=== PATIENT | female | born 1945 | race Caucasian/White ===

== ENCOUNTER 2024-04-23 14:40 | Outpatient (CLI) | payer MEDICARE, SELFPAY ==
--- NOTE | 2024-04-23 15:30 | ECG_ITS ---
Test Date: 2024-04-23 15:17:45 Measurements Intervals [place] Rate: 74 P: 82 MS: 151 QRS: -3 QRSD: 74 T: 20 QT: 381 QTc: 424 Interpretive Statements SINUS RHYTHM WITH OCCASIONAL SUPRAVENTRICULAR PREMATURE COMPLEXES LOW QRS VOLTAGE IN PRECORDIAL LEADS [QRS DEFLECTION < 1.0 mV IN CHEST LEADS] No previous ECG available for comparison Electronically Signed On 04-23-2024 15:28:58 CDT by Benji Aguero M.D.
[2024-04-23 15:32] LABS: Basophils Percent Auto 0.3 % (0.2-1.2); Eosinophils Absolute Auto 0.2 K/mm3 (0-0.3); Eosinophils Percent Auto 2.1 % (0-4.4); Hematocrit 41.3 % (37.0-47.0); Hemoglobin 13.5 g/dL (12.0-15.0); Immature Granulocyte Absolute 0.02 K/mm3 (0.00-0.031); Immature Granulocyte Percent A 0.2 % (0-0.5); Lymphocytes Absolute Auto 2.02 K/mm3 (0.9-3.2); Lymphocytes Percent Auto 22.6 % (18.3-44.2); Mean Corpuscular HGB Conc 32.7 g/dl (32-36); Mean Corpuscular Hemoglobin 31.3 pg (26-34); Mean Corpuscular Volume 95.8 fl (80-100); Mean Platelet Volume 8.9 fl (7.4-10.4); Monocytes Absolute Auto 0.6 K/mm3 (0.1-0.6); Monocytes Percent Auto 7.2 % (2.6-8.5); Neutrophils Percent Auto 67.6 % (45.5-73.1); Platelet Count Result 225 k/mm3 (150-375); Red Blood Count 4.31 M/mm3 (4.2-5.4); Red Cell Distribution Width 12.6 % (11.5-14.5); White Blood Count 8.9 K/mm3 (4.5-10.0)
[2024-04-23 15:44] LABS: Partial Thromboplastin Time 31.4 Seconds (22.3-36.8)
[2024-04-23 15:50] LABS: Anion Gap 8 mmol/L (4-12); Blood Urea Nitrogen 12 mg/dL (7-17); Calcium 9.1 mg/dL (8.4-10.2); Carbon Dioxide 27 mmol/L (22-30); Chloride 102 mmol/L (98-107); Estimated Glomerular Filt Rate > 60; Glucose 93 mg/dL (65-110); Potassium 4.8 mmol/L (3.4-5.0); Sodium 137 mmol/L (137-145)
--- OUTSIDE RECORDS SUMMARY | 2024-04-23 16:37 | XMS_ITS | Encounter Summary ---
Author Organization [facility] Address [address] [place] [address] Care Team Providers Care Industrial Welder Name Role Phone Koki Griggs MD Primary Care Provider [phone] Encounter Details Date Type Department Care Team ([facility] st Contact Info) Description 03/09/2022 [employer] Integration Software Message Enc [facility] [facility], [address] [address] [place], [facility] Provider Lipid panel Social History Tobacco Use Types Packs/Day Years Used Date Smoking Tobacco: Former Cigarettes Q uit: 1989 Smokeless Tobacco: Never Comments:quit Alcohol Use Standard Drinks/Week Comments Yes 0 (1 standard drink = 0.6 oz pur e alcohol) AUDIT-C Answer Date Recorded Q1: How often do you have a drink containing alc ohol? 2-4 times a month 02/17/2020 Q2: How many drinks containi ng alcohol do you have on a typical day when you are drinking? 1 or 2 02/17/2020 Frequency of Binge Drinking Not on file 02/05 Overall Financial Resource Strain (CARDIA) Answe r Date Recorded Difficulty of Paying Living Expenses Not hard at all 03/18/2019 Hunger Vital Sign Answer Date Recorded Worried About Running Out of Food in the Last Ye ar Never true 03/18/2019 Ran Out of Food in the Last Year Never true 03/18/2019 PRAPARE - Transportation Answer Date Re corded Lack of Transportation (Medical) Yes 03/18/2019 Lack of Transportation (Non-Medical) No 03/18/2019 Comments No Sex and Gender Information Value Date Recorded Sex Assigned at Female 04/18/2024 12:29 PM CDT Legal Sex Female 1:14 AM CDT Gender Identity Not on file Sexual Orientation Not on file COVID-19 Exposure Response Date Recorded In the last 10 days, have yo u been in contact with someone who was confirmed or suspected to have Coronavirus/COVID-19? No / Unsure 02/21/2022 1:54 PM OFFICE MACHINE SERVICER documented as of this encounter Functional Status * RETIRED Are you deaf or do you have serious difficulty hearing Answer Date of Assessment Author Status No 12/23/2021 4:58 PM OFFICE MACHINE SERVICER Activ e * RETIRED Are you blind or do you have serious difficulty seeing, even when wearing glasses? Answer Date of Assessment Author Status No 12/23/2021 4:58 PM OFFICE MACHINE SERVICER Activ e * Do you have serious difficulty walking or climbing stairs? Answer Date of Assessment Author Status Yes 12/23/2021 4:58 PM OFFICE MACHINE SERVICER Maryan Pearl RN Active * Do you have difficulty dressing or bathing? Answer Date of Assessment Author Status Yes 12/23/2021 4:58 PM OFFICE MACHINE SERVICER Maryan Pearl RN Active * Because of a physical, mental, or emotional condition, do you have difficulty doing errands alone such as visiting a doctor's office or shopping? Answer Date of Assessment Author Status Yes 12/23/2021 4:58 PM OFFICE MACHINE SERVICER Maryan Pearl RN Active documented as of this encounter Mental Status * Because of a physical, mental, or emotional condition, do you have serious difficulty concentrating, remembering, or making decisions? Answer Entry Date Author Status No 12/23/2021 4:58 PM OFFICE MACHINE SERVICER Maryan Pearl RN Active documented in this encounter Plan of Treatment Not on file documented as of this encounter Goals Goal Patient Goal Type Associated Problems Recent Progress Patient-Stated? Author Family - family caregiver with be involved in care transitions and discharge planning Lifestyle No Karol Lewis RN documented as of this encounter Visit Diagnoses Not on filedocumented in this encounter Care Teams Industrial Welder Relationship Specialty Start Date End Date Koki Griggs MD [address] [address] PCP - General 09/28/15 documented as of this encounter
--- OUTSIDE RECORDS SUMMARY | 2024-04-23 16:37 | XMS_ITS | Encounter Summary ---
Author Organization [facility] Address [address] [place] [address] Care Team Providers Care Blackjack Pit Boss Name Role Phone Koki Griggs MD Primary Care Provider [phone] Encounter Details Date Type Department Care Team (Late st Contact Info) Description 03/08/2022 [facility] [address] [address] Jarred Ayala MA Social History Tobacco Use Types Packs/Day Years [...] Coronavirus/COVID-19? No / Unsure 02/21/2022 1:54 PM CONTROL SYSTEMS DRAFTING OFFICER documented as of this encounter Functional Status * RETIRED Are you deaf or do you have serious difficulty hearing Answer Date of Assessment Author Status No 12/23/2021 4:58 PM CONTROL SYSTEMS DRAFTING OFFICER Activ e * RETIRED Are you blind or do you have serious difficulty seeing, even when wearing glasses? Answer Date of Assessment Author Status No 12/23/2021 4:58 PM CONTROL SYSTEMS DRAFTING OFFICER Activ e * Do you have serious difficulty walking or climbing stairs? Answer Date of Assessment Author Status Yes 12/23/2021 4:58 PM CONTROL SYSTEMS DRAFTING OFFICER Maryan Pearl RN Active * Do you have difficulty dressing or bathing? Answer Date of Assessment Author Status Yes 12/23/2021 4:58 PM CONTROL SYSTEMS DRAFTING OFFICER Maryan Pearl RN Active * Because of a physical, mental, or emotional condition, do you have difficulty doing errands alone such as visiting a doctor's office or shopping? Answer Date of Assessment Author Status Yes 12/23/2021 4:58 PM CONTROL SYSTEMS DRAFTING OFFICER Maryan Pearl RN Active documented as of this encounter Mental Status * Because of a physical, mental, or emotional condition, do you have serious difficulty concentrating, remembering, or making decisions? Answer Entry Date Author Status No 12/23/2021 4:58 PM CONTROL SYSTEMS DRAFTING OFFICER Maryan Pearl RN Active documented in this encounter Plan of Treatment Not on file documented as of this encounter Goals Goal Patient Goal Type Associated Problems Recent Progress Patient-Stated? Author Family - family caregiver with be involved in care transitions and discharge planning Lifestyle No Karol Lewis RN documented as of this encounter Procedures Procedure Name Priority Date/Time Associated Diagnosis Comments THYROID STIM HORMONE TSH Routine 06/06/2023 COMPREHENSIVE METABOLIC PANEL Routine 05/30/2023 LIPID PANEL Routine 05/30/2023 LIPID PANEL Routine 03/07/2022 documented in this encounter Results * THYROID STIM HORMONE TSH (06/06/2023) TSH 1.869 us Default History Genericprovider LABORATORY Final Result * COMPREHENSIVE METABOLIC PANEL (05/30/2023) SODIUM S/P/B 141 GLUCOSE 90 mg/dL AST 16 BUN 15 CREATININE S/P/B 0.7 0.5 - 1.0 CALCIUM S/P/B 8.4 POTASSIUM S/P/B 4.2 CHLORIDE S/P/B 106 ALT 14 GFR ESTIMATE 81 us Default History Genericprovider LABORATORY Final Result * LIPID PANEL (05/30/2023) CHOLESTEROL 142 TRIGLYCERIDES 94 HDL 48 LDL (CALCULATED) 75 us Default History Genericprovider LABORATORY Final Result * LIPID PANEL (03/07/2022) CHOLESTEROL 138 HDL 43.9 TRIGLYCERIDES 101 LDL (CALCULATED) 74.3 03/07/2022 us Default History Genericprovider LABORATORY Final Result documented in this encounter Visit Diagnoses Not on filedocumented in this encounter Care Teams Blackjack Pit Boss Relationship Specialty Start Date End Date Koki Griggs MD [address] [facility] [address] [place] [address] PCP - General 09/28/15 documented as of this encounter
--- OUTSIDE RECORDS SUMMARY | 2024-04-23 16:37 | XMS_ITS | Referral Summary ---
Author Organization [facility] at the Medical Office Building Address [address] [place] [address] Care Team Providers Care Vice President Digital Strategist Name Role Phone Koki Griggs MD Primary Care Provider [phone] Philip Ricci MD Unavailable Encounters Date Type Department Care Team Description 03/04/2024 Orders Only [facility] Vascular and Vein Surgery [address] [place] [address] [address] [place] [address] Elijah Marie MD Right carotid artery occlusion (Primary Dx); Carotid stenosis, left 03/03/2024 12:38 PM COAL YARD SUPERVISOR - 03/03/2024 11:59 PM COAL YARD SUPERVISOR Hospital Encounter [facility] [address] [place] [address] [address] [place] [address] Carotid stenosis, left Discharge Disposition: Discharge to home or self care 03/03/2024 1:45 PM COAL YARD SUPERVISOR Office Visit [facility] Vascular and Vein Surgery [address] [place] [address] [address] [place] [id number] Elijah Marie MD Carotid stenosis, left (Primary Dx); Primary hypertension; Mixed hyperlipidemia from Last 3 Months Allergies Active Allergy Reactions Criticality Noted Date Comments Aspartame Hives,Rash High 07/16/2015 Atorvastatin Stomach upset Low 12/22/2019 Oxybutynin Other (See comments) Low 12/22/2019 Dry mouth and dry eyes Penicillins Hives,Unknown High 10/29/2012 UNKNOWN Rosuvastatin Stomach upset Low 12/22/2019 Sulfa (Sulfonamide Antibiotics) Hives High 09/28/2015 Medications cholecalciferol (VITAMIN D-3) 3,000 unit tablet Take 0.6667 tablets (2,000 Units total) by mouth every morning Active alendronate (FOSAMAX) 70 mg tabletIndications:P ost-Menopausal Osteoporosis Take 1 tablet (70 mg total) by mouth HOLD X 4-6 WEEKS AFTER SURGERY. 05/17/19 22 Active aspirin 81 mg enteric coated tablet Take 1 tablet (81 mg total) by mouth daily 30 tablet 11 05/10/19 23 Active clopidogreL (PLAVIX) 75 mg tabletIndications:C erebral Thromboembolism Prevention Take 1 tablet (75 mg total) by mouth every morning 30 tablet 05/20/19 23 Active ezetimibe (ZETIA) 10 mg tablet Take 1 tablet (10 mg total) by mouth every morning 30 tablet 05/20/19 23 Active gabapentin (NEURONTIN) 100 mg capsule Take 1 capsule (100 mg total) by mouth 3 (three) times a day 90 capsule 05/20/19 Active Additional Information Patient not taking.Reported on 02/22/2023 levETIRAcetam (KEPPRA) 500 mg tabletIndications:T onic-clonic seizure disorder (HCC) Take 1 tablet (500 mg total) by mouth 2 (two) times a day Seizures 60 tablet 05/20/19 Active levothyroxine (SYNTHROID) 175 mcg tabletIndications:A cquired hypothyroidism Take 1 tablet (175 mcg total) by mouth every morning 30 tablet 05/20/[address] (PROTONIX) 40 mg EC tabletIndications:G I Bleed,Treatment of Non-Bleeding Gastric Disorder Take 1 tablet (40 mg total) by mouth daily 30 tablet 05/20/19 23 Active Additional Information Patient not taking.Reported on 02/22/2023 senna-docusate (PERICOLACE) 8.6-50 mgIndications:const ipation Take 1 tablet by mouth 2 (two) times a day as needed for constipation 05/20/19 Active Additional Information Patient not taking.Reported on 07/13/2022 sertraline (ZOLOFT) 50 mg tabletIndications:A nxiety and depression Take 1 tablet (50 mg total) by mouth daily 30 tablet 05/20/19 23 Active traMADoL (ULTRAM) 50 mg tabletIndications:C hronic generalized pain disorder Take 1 tablet (50 mg total) by mouth 3 (three) times a day as needed for pain 30 tablet 05/20/19 23 Active traZODone (DESYREL) 50 mg tabletIndications:A nxiety and depression Take 1 tablet (50 mg total) by mouth nightly 30 tablet 05/20/19 23 Active venlafaxine XR (EFFEXOR-XR) 75 mg 24 hr capsuleIndications: hot flashes Take 1 capsule (75 mg total) by mouth every morning 30 capsule 05/20/19 23 Active acetaminophen (TYLENOL) 500 mg tablet Take 1 tablet (500 mg total) by mouth every 6 (six) hours as needed Active atorvastatin (LIPITOR) 40 mg tablet 04/26/19 23 Active melatonin tablet Take 2 tablets (6 mg total) by mouth nightly as needed Active tiZANidine (ZANAFLEX) 2 mg tablet 07/11/19 Active nystatin powder 01/03/20 Active Active Problems Problem Noted Date Diagnosed Date Chronic generalized pain disorder 05/10/2022 Assessment & Plan (05/20/2022 3:52 PM CDT): Pain overall well controlled, continue gabapentin, tizanidine, tramadol p.r.n. Assessment & Plan (05/17/2022 9:20 PM CDT): Pain remains well controlled on current regimen, she feels she is making some progress in therapy. Continue multidrug regimen including gabapentin, Tylenol, tizanidine, tramadol Assessment & Plan (05/15/2022 8:10 PM CDT): Pain overall well controlled, refill for gabapentin sent to pharmacy. Continue scheduled gabapentin 100 mg t.i.d., p.r.n. tramadol, Tylenol, tizanidine p.r.n. Assessment & Plan (05/10/2022 5:46 AM CDT): Continue gabapentin 100 mg t.i.d., tizanidine p.r.n., tramadol p.r.n.. Anxiety and depression 05/10/2022 Assessment & Plan (05/20/2022 3:52 PM CDT): Mood stable, continue Zoloft, venlafaxine Assessment & Plan (05/17/2022 9:20 PM CDT): Mood is well controlled with regimen including venlafaxine, Zoloft. Patient without behaviors and is cooperative with care. Assessment & Plan (05/10/2022 5:46 AM CDT): Mood currently stable. Continue Zoloft 50 mg, venlafaxine 75 mg daily. Chronic right shoulder pain 05/10/2022 Assessment & Plan (05/15/2022 8:07 PM CDT): Patient dislikes the Lidoderm patches, will change to lidocaine cream. Continue Tylenol, tramadol p.r.n. Assessment & Plan (05/10/2022 6:10 PM CDT): Lidocaine patch, tylenol q6 Slow transit constipation 05/09/2022 Assessment & Plan (05/20/2022 3:52 PM CDT): Stable with p.r.n. bowel regimen Assessment & Plan (05/15/2022 8:07 PM CDT): Now with looser stool, cathartics have been changed to p.r.n. Assessment & Plan (05/10/2022 5:38 AM CDT): Had BM, cont Liliana Colace b.i.d., MiraLax, suppository p.r.n.. Encourage oral hydration and nutrition Assessment & Plan (05/09/2022 1:18 PM CDT): Will add BID pericolace and daily miralax, prn suppository Gastrointestinal hemorrhage, unspecified gastrointestinal hemorrhage type 04/25/2022 Assessment & Plan (05/20/2022 3:49 PM CDT): Status post EGD, colonoscopy by Dr. Aguero, no evidence of active bleeding. Resumed Plavix and aspirin, continue PPI daily. Will need outpatient GI follow-up Assessment & Plan (05/17/2022 9:22 PM CDT): H&H has been stable, most recent hemoglobin 9.9. Continue to monitor. Follow-up hemoglobin on 05/23/2022 Assessment & Plan (05/15/2022 8:10 PM CDT): No recurrence of noticeable/active bleeding. H&H previously stable, follow-up H&H in a.m.. Assessment & Plan (05/10/2022 5:38 AM CDT): Pt presented in ER due to BRBPR. Status post EGD, colonoscopy per Dr. Aguero. Continue PPI daily - no evidence of active bleeding during evaluation. Resumed Plavix, aspirin. Last Hg 10.1 on 05/07/22, stable. We will need to monitor H&H. Assessment & Plan (05/09/2022 8:21 PM CDT): Status post EGD, colonoscopy. Continue PPI daily - no evidence of active bleeding during evaluation. Resumed Plavix, aspirin. We will need to monitor H&H. Syncope 12/20/2021 07/13/2022 Hypertension 05/11/2021 Assessment & Plan (05/10/2022 5:44 AM CDT): Blood pressure controlled. Continue not on any med. Continue to monitor Diastolic dysfunction 05/11/2021 Primary osteoarthritis of left knee 09/04/2019 Assessment & Plan (05/09/2022 8:20 PM CDT): Chronic left knee pain, previously followed with Dr. Florez. Pain typically with Tylenol only, now with increased pain after laying in hospital bed. Will add tramadol p.r.n. Assessment & Plan (12/01/2019 5:47 PM CDT): We discussed the risks, benefits and alternatives of treatment options for osteoarthritis of the knee. From least invasive to most invasive: The only thing to slow the progression of osteoarthritis is weight loss. For every pound lost 4 to 6 pounds of stress is relieved from the knee. Formal physical therapy to help with flexion, extension, mobility and strength. Unloading braces to unload the affected side. The possibility of TENs unit to control pain and swelling. Nonsteroidal anti-inflammatories with the potential of cardiac and GI upset. Steroid and Visco supplement injection. And eventual total knee arthroplasty. Patient understands that I will not be here after January 06, 2020. Alternate physicians were offered. Dr. Hernández and Dr. Webb. Visco supplement injected today. Follow-up in 3 months. Assessment & Plan (09/04/2019 8:25 PM CDT): We discussed the risks, benefits and alternatives of treatment options for osteoarthritis of the knee. From least invasive to most invasive: The only thing to slow the progression of osteoarthritis is weight loss. For every pound lost 4 to 6 pounds of stress is relieved from the knee. Formal physical therapy to help with flexion, extension, mobility and strength. Unloading braces to unload the affected side. The possibility of TENs unit to control pain and swelling. Nonsteroidal anti-inflammatories with the potential of cardiac and GI upset. Steroid and Visco supplement injection. And eventual total knee arthroplasty. After going over the risks, benefits and alternatives all questions are answered. Zilretta is injected. Follow up in 4 weeks for possible Visco supplement injection Class 1 obesity in adult 09/04/2019 Assessment & Plan (09/04/2019 8:25 PM CDT): We discussed the adverse effects of extra weight on osteoarthritis. The only thing proven to slow the progression of osteoarthritis as weight loss. Every 1 lb lost, relieves 4-6 lb of stress across the knee. Continue weight loss through diet and exercise. Consider low carbohydrate diet. Closed fracture of multiple pubic rami, right, with routine healing, subsequent encounter 04/08/2019 Closed nondisplaced fracture of medial wall of right acetabulum 03/19/2019 Hip fracture 03/18/2019 Right carotid artery occlusion 08/28/2016 CVA (cerebral vascular accident) 09/28/2015 Overview (12/23/2018): Back in 1997. Left hemiplegia but still able to walk without assistance. Assessment & Plan (09/04/2019 8:26 PM CDT): On blood thinners therefore cannot use nonsteroidal anti-inflammatories. HLD (hyperlipidemia) 09/28/2015 Assessment & Plan (03/06/2024 7:59 AM COAL YARD SUPERVISOR): Stable continue Lipitor. Hypothyroidism 09/28/2015 Assessment & Plan (05/20/2022 3:48 PM CDT): TSH well controlled, continue 175 mcg daily of Synthroid Assessment & Plan (05/10/2022 5:42 AM CDT): TSH 34 in 12/27>>> 10.18 on 04/28. Will recheck tsh, cont 175 mcg dose Tonic-clonic seizure disorder (CMS/HCC) 09/28/19 16 Assessment & Plan (05/20/2022 3:52 PM CDT): No recent seizure activity, Keppra level stable, continue current Keppra dosing Assessment & Plan (05/10/2022 5:45 AM CDT): Currently stable, no seizure activity. Continue Keppra, follow-up Keppra level on 05/12 Assessment & Plan (05/09/2022 8:23 PM CDT): No active recent seizures. Continue Keppra, follow-up level in a.m. Carotid stenosis, left 06/28/2015 Assessment & Plan (03/06/2024 7:58 AM COAL YARD SUPERVISOR): Known right CCA and ICA occlusion. Left ICA with severe greater than 70% stenosis, overall still less than 80%. Continue risk factor modification with ASA Plavix and statin therapy. Follow up in 6 months repeat carotid duplex. Assessment & Plan (05/10/2022 5:43 AM CDT): History of chronic right ICA occlusion, currently moderate left carotid stenosis. Continue Plavix, aspirin. Follows up outpatient with vascular, Dr. Winter. Will need routine surveillance carotid duplex Assessment & Plan (11/25/2021 3:26 PM CDT): Patient has a history of chronic right ICA occlusion. She currently has a moderate left carotid stenosis with a velocity of 127. She remains asymptomatic denying any symptoms of slurred speech unilateral weakness or amaurosis fugax. Plan: Return in 1 year for routine surveillance with a carotid duplex. Contracture of hand joint 09/06/2011 Immunizations Immunization Administration Dates Next Due Influenza, Quadrivalent, Hig h Dose, Preservative Free, Intrr 11/23/2020,10/16/2019 Influenza, Trivalent, High D ose, Split, Preservative Free, Intramuscular 01/14/2019,01/13/2019,11/08/2017,11/11,11/10/2015,11/29/2014 Influenza, Trivalent, IM (MDV) 10/23/2013,2012,11/29/2011 Influenza, Unspecified 10/23/2013,12/11/2012, Tdap 07/21/2020 ZOSTER LIVE 07/04/2013 Social History Tobacco Use Types Packs/Day Years Used Date Smoking Tobacco: Former Cigarettes 1 35 1 964 - 1985 Smokeless Tobacco: Never Tobacco Cessation:Counseling Given: Not Answered Alcohol Use Standard Drinks/Week Comments Yes 0 (1 standard drink = 0.6 oz pur e alcohol) socially AUDIT-C Answer Date Recorded Q1: How often do you have a drink containing alc ohol? 2-4 times a month 05/16/2021 Average Number of Drinks Not on file 022 Frequency of Binge Drinking Not on file 05/06 Personal Safety Answer Date Recorded Have you ever been in or are you currently in a harmful physical or emotional relationship or is someone making you feel afraid or unsafe? Denies 04/27/2022 Comments No Sex and Gender Information Value Date Recorded Sex Assigned at Not on file Legal Sex Female 9:42 AM COAL YARD SUPERVISOR Gender Identity Not on file Sexual Orientation Not on file Occupation Industry Job Start Date Job End Date retired Not on file Not on file Not on file Last Filed Vital Signs Vital Sign Reading Time Taken Comments Blood Pressure 141/84 03/03/2024 1:40 PM COAL YARD SUPERVISOR Pulse 65 03/03/2024 1:40 PM COAL YARD SUPERVISOR Temperature 36.3 C (97.4 F) 05/19/2022 11:29 AM CDT Respiratory Rate 18 05/19/2022 11:29 AM CDT Oxygen Saturation 93% 05/19/2022 11:29 AM CDT Inhaled Oxygen Concentration - - Weight 83.9 kg (185 lb) 03/03/2024 1:40 PM COAL YARD SUPERVISOR Height 167.6 cm (5' 6 ) 03/03/2024 1:40 PM COAL YARD SUPERVISOR Body Mass Index 29.86 03/03/2024 1:40 PM COAL YARD SUPERVISOR Plan of Treatment Not on file Medical Devices Implanted Type Area Cook Morning Device Identifier Shelf Expiration Date Model / Serial / Lot [employer] Simplex P Full Dose Radiopaque Preblend Cement Bone Tobramycin 6197-9-010 - Sna - [id number] Implanted:Qty: 1 on 05/16/2021 by Mohan Novak MD at [facility] Bone Cement Left: Knee [employer] 08/04/2022 6197-9-010 / NA / [id number] [employer] Simplex P Full Dose Radiopaque Preblend Cement Bone Tobramycin 6197-9-010 - Sna - [id number] Implanted:Qty: 1 on 05/16/2021 by Mohan Novak MD at [facility] Bone Cement Left: Knee [employer] 08/04/2022 6197-9-010 / NA / [id number] [employer] [id number] Persona Natural Tibia Stem Knee Left 5d E Baseplate Tibial - Sna - [id number] Implanted:Qty: 1 on 05/16/2021 by Mohan Novak MD at [facility] Other - see comments Left: Knee [employer] [id number] 11/15/2030 [id number] / NA / [id number] [employer] Persona Cruciate Retain Cemented Knee Left 9 Narrow Component [id number] - Sna - [id number] Implanted:Qty: 1 on 05/16/2021 by Mohan Novak MD at [facility] Other - see comments Left: Knee [employer] [id number] 12/27/2030 [id number] / NA / [id number] [employer] Persona 10mm Ultracongruent Knee Left 4-11 E-F Insert Articular [id number] - Sna - [id number] Implanted:Qty: 1 on 05/16/2021 by Mohan Novak MD at [facility] Other - see comments Left: Knee [employer] [id number] 05/06/2027 [id number] / NA / [id number] Knee Right: Knee Description:Screws R femur, pins in L shoulder Procedures Procedure Name Priority Date/Time Associated Diagnosis Comments US CAROTIDS DUPLEX BILATERAL Schedule Routine, Read Routine (OP Routine) 03/03/2024 1:42 PM COAL YARD SUPERVISOR Carotid stenosis, left DEXA AXIAL SKELETON BONE DENSITY 1 OR MORE SITES Routine 07/30/2015 2:12 PM CDT from Last 3 Months or Most Recently Relevant to Health Maintenance Results * US Carotids Duplex Bilateral (03/03/2024 1:42 PM COAL YARD SUPERVISOR) Anatomical Region Laterality Modality Vascular Bilateral Ultrasound 03/03/2024 Narrative 03/04/2024 11:50 AM COAL YARD SUPERVISOR [employer] Job ID: [id number] [employer] Document ID: [id number] Dictated date/time: [id number] BILATERAL CAROTID DUPLEX REASON FOR EXAM Carotid stenosis. FINDINGS ON THE RIGHT The right CCA and ICA are known to be occluded. ECA is 48. The right vertebral has antegrade flow FINDINGS ON THE LEFT The left CCA peak systolic velocity is 97 cm/sec, left ICA is 251 over an end-diastolic velocity of 66. Mid portion 135/52, distal 87. ECA is 128. The left vertebral has antegrade flow. INTERPRETATION Known chronic occlusion of the right common carotid and internal carotid artery. Left internal carotid artery with severe greater than 70% stenosis. Job ID/Internal Job ID: [id number] us Christian Winter MD IMG US PROCEDURES Final Res ult * Dexa Axial Skeleton Bone Density 1 or 2 Site (07/30/2015 2:12 PM CDT) Anatomical Region Laterality Modality Body N/A Radiographic Christi ging 07/30/2015 2:12 PM CDT Impressions 07/30/2015 3:07 PM CDT Low bone mass. Fracture risk, as above. Additional Clinical Information: Bone mineral density: Normal (T-score above or = -1.0) Low bone mass (T-score between -1.0 and -2.5) replaces the previously used term osteopenia Osteoporosis (T-score = or below -2.5) Medical evaluation for secondary causes of low bone mineral density may be appropriate. FRAX is a World Health Organization validated fracture risk assessment tool that calculates a person's 10 year probability of a major osteoporosis related fracture and hip fracture. According to the National Osteoporosis Foundation guidelines, postmenopausal women and men age 50 or older with low bone mass and a 10 year probability of a major osteoporosis related fracture = or greater than 20% or a 10 year probability of a hip fracture = or greater than 3% should be considered for treatment. For further information, including treatment recommendations, please refer to the 2013 ISCD Official Positions (http://www.iscd.org) and the NOF's Clinician's Guide to Prevention and Treatment of Osteoporosis (http://www.nof.org/professionals/clinical-guidelines) THIS IS AN ELECTRONICALLY VERIFIED REPORT 07/30/2015 3:04 PM: Mansoor Sherman M.D. Mansoor Sherman M.D. [place]:tunde 03:04 PM 03:04 PM [facility] [EOD] Narrative 07/30/2015 3:07 PM CDT EXAMINATION: DXA Bone Density HISTORY: 70 year old postmenopausal female. Current Height: 66.5 inches Maximum Height: 68 inches Weight: 224 pounds RISK FACTORS: She has taken multivitamin and vitamin D. She does not regularly perform weightbearing exercise. She regularly consumes dairy products and caffeinated beverages. COMPARISON(S): None SUPERVISOR MACHINING/MODEL: [employer] (S/N [id number]) FINDINGS: AP lumbar spine L1-L4 Total BMD is 1.149 g/yd9R-qmsgh is 0.9 Measured BMD is thought to be spuriously elevated due to multilevel arthropathy. Left Hip Total BMD is 0.828 g/rb9L-vorrz is -0.9 Neck BMD is 0.627 g/as6A-fnszv is -2 Fracture risk assessment (FRAX): 10 year risk for a major osteoporotic fracture is 11 % 10 year risk for a hip fracture is 2.2 % The FRAX tool has not been validated in patients currently or previously treated with pharmacotherapy for osteoporosis. In such patients, clinical judgement must be exercised in interpreting FRAX scores as the fracture risk may be overestimated. Procedure Note Provider, MD Nate - 06/22/2020 EXAMINATION: DXA Bone Density HISTORY: 70 year old postmenopausal female. Current Height: 66.5 inches Maximum Height: 68 inches Weight: 224 pounds RISK FACTORS: She has taken multivitamin and vitamin D. She does not regularly perform weightbearing exercise. She regularly consumes dairy products and caffeinated beverages. COMPARISON(S): None SUPERVISOR MACHINING/MODEL: [employer] (S/N [id number]) FINDINGS: AP lumbar spine L1-L4 Total BMD is 1.149 g/fu9X-asvsv is 0.9 Measured BMD is thought to be spuriously elevated due to multilevel arthropathy. Left Hip Total BMD is 0.828 g/po4G-aygtd is -0.9 Neck BMD is 0.627 g/vy7G-lpkzg is -2 Fracture risk assessment (FRAX): 10 year risk for a major osteoporotic fracture is 11 % 10 year risk for a hip fracture is 2.2 % The FRAX tool has not been validated in patients currently or previously treated with pharmacotherapy for osteoporosis. In such patients, clinical judgement must be exercised in interpreting FRAX scores as the fracturerisk may be overestimated. IMPRESSION: Low bone mass. Fracture risk, as above. Additional Clinical Information: Bone mineral density: Normal (T-score above or = -1.0) Low bone mass (T-score between -1.0 and -2.5) replaces the previously used term osteopenia Osteoporosis (T-score = or below -2.5) Medical evaluation for secondary causes of low bone mineral density may be appropriate. FRAX is a World Health Organization validated fracture risk assessmenttool that calculates a person's 10 year probability of a major osteoporosisrelated fracture and hip fracture. According to the National OsteoporosisFoundation guidelines, postmenopausal women and men age 50 or older with low bonemass and a 10 year probability of a major osteoporosis related fracture = or greater than 20% or a 10 year probability of a hip fracture = or greaterthan 3% should be considered for treatment. For further information, including treatment recommendations, please referto the 2013 ISCD Official Positions (http://www.iscd.org) and the NOF's Clinician's Guide to Prevention and Treatment of Osteoporosis (http://www.nof.org/professionals/clinical-guidelines) THIS IS AN ELECTRONICALLY VERIFIED REPORT 07/30/2015 3:04 PM: Mansoor Sherman M.D. Mansoor Sherman M.D. NH:ms 03:04 PM 03:04 PM [facility] [EOD] Koki Griggs MD IMG DXA PROCEDURES Final Resul t from Last 3 Months or Most Recently Relevant to Health Maintenance Insurance [employer] MEDICARE MEDICARE [employer] [facility] MEDICARE Address: [address] [address] [place] [address] FOR[facility]LY [facility] MEDIC[facility] Advance Directives For more information, please contact: [phone] Documents on File Type Date Recorded Patient Aluminum Hydroxide Process Operator Expl anation ADVANCE DIRECTIVE 05/09/2022 2:00 PM POLST - Phys Order for PT Preferences ADVANCE DIRECTIVE 10/30/2012 12:00 AM CLINT R OF EXTENSION PROFESSOR FINANCIAL/MEDICAL ADVANCE DIRECTIVE 10/22/2012 12:00 AM SHAMAR NAVARRO * Full Code (Latest Code Status on File) Date Activated Date Inactivated Comments 04/27/2022 12:05 PM 05/08/2022 8:38 PM * Full Code Date Activated Date Inactivated Comments 04/25/2022 6:11 PM 04/27/2022 12:05 PM * Full Code Date Activated Date Inactivated Comments 05/16/2021 2:43 PM 05/21/2021 4:35 PM Care Teams Vice President Digital Strategist Relationship Specialty Start Date End Date Koki Griggs MD [address] [address] PCP - General Family Medicine 10/28/18 Philip Ricci MD [address] [address] Consulting Physician Gastroenterology 04/28/22
--- OUTSIDE RECORDS SUMMARY | 2024-04-23 16:37 | XMS_ITS | Clinical Summary ---
Author Organization [facility] at the Medical Office Building Address [address] [place] [address] Care Team Providers Care Print Decorator Name Role Phone Koki Griggs MD Primary Care Provider [phone] Philip Ricci MD Unavailable Allergies Active Allergy Reactions Criticality Noted Date [...] by mouth every morning 30 tablet 05/20/19 Active gabapentin (NEURONTIN) 100 mg capsule Take [...] by mouth every morning 30 tablet 05/20/[address] (PROTONIX) 40 mg EC tabletIndications:G I Bleed,Treatment of Non-Bleeding Gastric Disorder Take 1 tablet (40 mg total) by mouth daily 30 tablet 05/20/19 Active Additional Information Patient not taking.Reported on 02/22/2023 senna-docusate (PERICOLACE) 8.6-50 mgIndications:const ipation Take 1 tablet by mouth 2 (two) times a day as needed for constipation 05/20/19 Active Additional Information Patient not taking.Reported on 07/13/2022 sertraline (ZOLOFT) 50 mg tabletIndications:A nxiety and depression Take 1 tablet (50 mg total) by mouth daily 30 tablet 05/20/19 Active traMADoL (ULTRAM) 50 mg tabletIndications:C hronic generalized pain disorder Take 1 tablet (50 mg total) by mouth 3 (three) times a day as needed for pain 30 tablet 05/20/19 Active traZODone (DESYREL) 50 mg tabletIndications:A nxiety and depression Take 1 tablet (50 mg total) by mouth nightly 30 tablet 05/20/19 Active venlafaxine XR (EFFEXOR-XR) 75 mg 24 hr capsuleIndications: hot flashes Take 1 capsule (75 mg total) by mouth every morning 30 capsule 05/20/19 Active acetaminophen (TYLENOL) 500 mg tablet Take 1 tablet (500 mg total) by mouth every 6 (six) hours as needed Active atorvastatin (LIPITOR) 40 mg tablet 04/26/19 Active melatonin tablet Take 2 tablets (6 [...] 09/28/2015 Assessment & Plan (03/06/2024 7:59 AM ENGRAVER SEALS): Stable continue Lipitor. Hypothyroidism 09/28/2015 Assessment & [...] 06/28/2015 Assessment & Plan (03/06/2024 7:58 AM ENGRAVER SEALS): Known right CCA and ICA occlusion. Left [...] carotid duplex. Contracture of hand joint 09/06/2011 Encounters Date Type Department Care Team Description 03/04/2024 Orders Only [facility] Vascular and Vein Surgery [facility] [address] [place] [phone] Elijah Marie MD Right carotid artery occlusion (Primary Dx); Carotid stenosis, left 03/03/2024 1:45 PM ENGRAVER SEALS Office Visit [facility] Vascular and Vein Surgery [address] [facility] [address] [place] [phone] Elijah Marie MD Carotid stenosis, left (Primary Dx); Primary hypertension; Mixed hyperlipidemia 03/03/2024 12:38 PM ENGRAVER SEALS - 03/03/2024 11:59 PM ENGRAVER SEALS Hospital Encounter [facility] 2 Vascular [facility] [address] [place] [address] Carotid stenosis, left Discharge Disposition: Discharge to home or self care from Last 3 Months Immunizations Immunization Administration Dates Next Due Influenza, Quadrivalent, Hig h Dose, Preservative Free, Intrr 11/23/2020,10/16/2019 Influenza, Trivalent, High D ose, Split, Preservative Free, Intramuscular 01/14/2019,01/13/2019,11/08/2017,11/11,11/10/2015,11/29/2014 Influenza, Trivalent, IM (MDV) 10/23/2013,2012,11/29/2011 Influenza, Unspecified 10/23/2013,12/11/2012, Tdap 07/21/2020 ZOSTER LIVE 07/04/2013 Surgical History Surgery Date Site/Laterality Comments FINGER SURGERY Left FUSION SHOULDER SURGERY Left PINS PLACED CAROTID ENARTERECTOMYY 02/05/1997 - 02/04/1998 Right SHOULDER SURGERY Left TOTAL KNEE ARTHROPLASTY Right FRACTURE SURGERY 02/05/2018 - 02/04/2019 fall femur fx HERNIA REPAIR abdominal hernia JOINT REPLACEMENT Right knee replacement Medical History Medical History Date Comments Hypercholesterolemia Hx of seizure disorder Stroke (HCC) OA (osteoarthritis) Seizures (HCC) Thyroid disease Family History Medical History Relation Name Comments Arthritis Father Cancer Father Gout Father Heart disease Father Stroke Father Blood Clot Mother Anesthesia problems Neg Hx Relation Name Status Comments Father Mother Social History Tobacco Use Types Packs/Day Years [...] on file Legal Sex Female 9:42 AM ENGRAVER SEALS Gender Identity Not on file Sexual Orientation Not on file Occupation Industry Job Start Date Job End Date retired Not on file Not on file Not on file Obstetrics History Last Filed Vital Signs Vital Sign Reading Time Taken Comments Blood Pressure 141/84 03/03/2024 1:40 PM ENGRAVER SEALS Pulse 65 03/03/2024 1:40 PM ENGRAVER SEALS Temperature 36.3 C (97.4 F) 05/19/2022 11:29 AM CDT Respiratory Rate 18 05/19/2022 11:29 AM CDT Oxygen Saturation 93% 05/19/2022 11:29 AM CDT Inhaled Oxygen Concentration - - Weight 83.9 kg (185 lb) 03/03/2024 1:40 PM ENGRAVER SEALS Height 167.6 cm (5' 6 ) 03/03/2024 1:40 PM ENGRAVER SEALS Body Mass Index 29.86 03/03/2024 1:40 PM ENGRAVER SEALS Plan of Treatment Health Maintenance Due Date Last Done Comments Depression Screening 1943 Hepatitis B Screening 1961 Pneumococcal vaccine 65+ (1 of 1 - PCV) 1993 Well Visit 65+ 02/12/2008 Zoster Vaccine (2 of 3) 08/29/2013 07/04/2013 Osteoporosis Screening-Bone Density Scan 02/03/2022 02/04/2020, 07/30/2015 Fall Risk Assessment 05/09/2023 05/08/2022 Covid-19 Vaccine (4 - 2023-2 5 season) 2023 01/08/2021, 03/25/2020, 03/04/2020 Influenza Vaccine (#1) 2023 , 10/16/2019, 01/14/2019, Additional history exists DTaP/Tdap/Td Vaccine (2 - Td or Tdap) 07/21/2030 07/21/2020 Medical Devices Implanted Type Area Rn Psychiatric Device Identifier Shelf Expiration Date Model / Serial / Lot [employer] Simplex P Full Dose Radiopaque Preblend Cement Bone Tobramycin 6197-9-010 - Sna - [id number] Implanted:Qty: 1 on 05/16/2021 by Mohan Novak MD at [facility] Bone Cement Left: Knee [employer] 08/04/2022 6197-9-010 / NA / [id number] [employer] Simplex P Full Dose Radiopaque Preblend Cement Bone Tobramycin 6197-9-010 - Sna - [id number] Implanted:Qty: 1 on 05/16/2021 by Mohan Novak MD at [facility] Bone Cement Left: Knee [employer] 08/04/2022 6197-9-010 / NA / [id number] [employer] [id number] Persona Natural Tibia Stem Knee Left 5d E Baseplate Tibial - Sna - [id number] Implanted:Qty: 1 on 05/16/2021 by Mohan Novak MD at [facility] Other - see comments Left: Knee [employer] [id number] 11/15/2030 [id number] / NA / [id number] [employer] Persona Cruciate Retain Cemented Knee Left 9 Narrow Component [id number] - Sna - [id number] Implanted:Qty: 1 on 05/16/2021 by Mohan Novak MD at [facility] Other - see comments Left: Knee [employer] [id number] 12/27/2030 [id number] / NA / [id number] [employer] Persona 10mm Ultracongruent Knee Left 4-11 E-F Insert Articular [id number] - Sna - [id number] Implanted:Qty: 1 on 05/16/2021 by Mohan Novak MD at [facility] Other - see comments Left: Knee [employer] [id number] 05/06/2027 [id number] / NA / [id number] Knee Right: Knee Description:Screws R femur, pins in L shoulder Procedures Procedure Name Priority Date/Time Associated Diagnosis Comments US CAROTIDS DUPLEX BILATERAL Schedule Routine, Read Routine (OP Routine) 03/03/2024 1:42 PM ENGRAVER SEALS Carotid stenosis, left DEXA AXIAL SKELETON BONE DENSITY 1 OR MORE SITES Routine 07/30/2015 2:12 PM CDT from Last 3 Months or Most Recently Relevant to Health Maintenance Results * US Carotids Duplex Bilateral (03/03/2024 1:42 PM ENGRAVER SEALS) Anatomical Region Laterality Modality Vascular Bilateral Ultrasound 03/03/2024 Narrative 03/04/2024 11:50 AM ENGRAVER SEALS [employer] Job ID: [id number] [employer] Document ID: [id number] Dictated date/time: [id number] BILATERAL CAROTID DUPLEX REASON FOR EXAM Carotid [...] than 70% stenosis. Job ID/Internal Job ID: [id number] [facility] Angie Winter MD [facility] US PROCEDURES Final Res ult * Dexa [...] PM: Mansoor Sherman M.D. Mansoor Sherman M.D. [place]:la 03:04 PM 03:04 PM [facility] [EOD] Narrative 07/30/2015 3:07 PM CDT EXAMINATION: DXA Bone Density HISTORY: 70 year old postmenopausal female. Current Height: 66.5 inches Maximum Height: 68 inches Weight: 224 pounds RISK FACTORS: She has taken multivitamin and vitamin D. She does not regularly perform weightbearing exercise. She regularly consumes dairy products and caffeinated beverages. COMPARISON(S): None PHOTOGRAPH DEVELOPER/MODEL: [employer] (S/N [id number]) FINDINGS: AP lumbar spine L1-L4 Total BMD is 1.149 g/gk9H-olzfs is 0.9 Measured BMD is thought to be spuriously elevated due to multilevel arthropathy. Left Hip Total BMD is 0.828 g/ux6X-wffpb is -0.9 Neck BMD is 0.627 g/nr7I-tmgra is -2 Fracture risk assessment (FRAX): 10 [...] dairy products and caffeinated beverages. COMPARISON(S): None PHOTOGRAPH DEVELOPER/MODEL: [employer] (S/N [id number]) FINDINGS: AP lumbar spine L1-L4 Total BMD is 1.149 g/td3I-mqkhp is 0.9 Measured BMD is thought to be spuriously elevated due to multilevel arthropathy. Left Hip Total BMD is 0.828 g/ew5I-mdick is -0.9 Neck BMD is 0.627 g/uq5Y-anqtl is -2 Fracture risk assessment (FRAX): 10 [...] PM: Mansoor Sherman M.D. Mansoor Sherman M.D. NH:la 03:04 PM 03:04 PM BM [EOD] Koki Griggs MD IMG DXA PROCEDURES Final Resul t from Last 3 Months or Most Recently Relevant to Health Maintenance Insurance [facility] MEDICARE MEDICARE [facility] MEDICARE Address: [address] [address] [place] [address] [employer] MEDICARE Advance Directives For more information, please contact: [phone] Documents on File Type Date Recorded Patient Bias Binding Folder Expl anation ADVANCE DIRECTIVE 05/09/2022 2:00 PM POLST - Phys Order for PT Preferences ADVANCE DIRECTIVE 10/30/2012 12:00 AM CLINT R OF INVISIBLE BRACES ORTHODONTIST FINANCIAL/MEDICAL ADVANCE DIRECTIVE 10/22/2012 12:00 AM SHAMAR TRISTAN WILL * Full Code (Latest Code Status on File) Date Activated Date Inactivated Comments 04/27/2022 12:05 PM 05/08/2022 8:38 PM * Full Code Date Activated Date Inactivated Comments 04/25/2022 6:11 PM 04/27/2022 12:05 PM * Full Code Date Activated Date Inactivated Comments 05/16/2021 2:43 PM 05/21/2021 4:35 PM Care Teams Print Decorator Relationship Specialty Start Date End Date Koki Griggs MD [address] [address] PCP - General Family Medicine 10/28/18 Philip Ricci MD [address] [address] Consulting Physician Gastroenterology 04/28/22
--- OUTSIDE RECORDS SUMMARY | 2024-04-23 16:37 | XMS_ITS | Encounter Summary ---
Author Organization [facility] Healthcare Address [address] [place] [address] Care Team Providers Care Director Case Management Name Role Phone Koki Griggs MD Primary Care Provider Philip Ricci MD Unavailable Encounter Details Date Type Department Care Team (Late st Contact Info) Description 06/30/2021 Telephone [facility] Radiology [address] [place] [address] Mohan Novak MD [address] [facility] [address] [place] [address] Social History Tobacco Use Types Packs/Day Years Used Date Smoking Tobacco: Former Cigarettes 1 35 1 964 - 1985 Smokeless Tobacco: Never Alcohol Use Standard Drinks/Week Comments Yes 0 (1 standard drink = 0.6 oz pur e alcohol) socially AUDIT-C Answer Date Recorded Q1: How often do you have a drink containing alc ohol? 2-4 times a month 05/16/2021 Average Number of Drinks Not on file 022 Frequency of Binge Drinking Not on file 05/06 Comments No Sex and Gender Information Value Date Recorded Sex Assigned at Not on file Legal Sex Female 9:42 AM ALUMINUM POURER Gender Identity Not on file Sexual Orientation Not on file Occupation Industry Job Start Date Job End Date retired Not on file Not on file Not on file documented as of this encounter Plan of Treatment Not on file documented as of this encounter Visit Diagnoses Not on filedocumented in this encounter Care Teams Director Case Management Relationship Specialty Start Date End Date Koki Griggs MD [address] [address] PCP - General Family Medicine 10/28/18 Philip Ricci MD [address] [address] Consulting Physician Gastroenterology 04/28/22 documented as of this encounter
--- OUTSIDE RECORDS SUMMARY | 2024-04-23 16:37 | XMS_ITS | Encounter Summary ---
Author Organization [facility] Address [address] [place] [address] Care Team Providers Care Siding Applicator Name Role Phone Koki Griggs MD Primary Care Provider [phone] Encounter Details Date Type Department Care Team (Late st Contact Info) Description 12/21/2019 Prep for Procedure [facility] [place], [place] [id number] Ned Saldaña MD [address] [address] Social History Tobacco Use Types Packs/Day Years Used Date Smoking Tobacco: Former Cigarettes Q uit: 1989 Smokeless Tobacco: Never Alcohol Use Standard Drinks/Week Comments Yes 0 (1 standard drink = 0.6 oz pur e alcohol) SOCIAL Overall Financial Resource Strain (CARDIA) Answe r [...] Exposure Response Date Recorded In the last month, have you been in contact with someone who was confirmed or suspected to have Coronavirus / COVID-19? No / Unsure 12/24/2019 9:53 AM FIBER TECHNOLOGIST documented as of this encounter Functional Status * RETIRED Are you deaf or do you have serious difficulty hearing Answer Date of Assessment Author Status No 03/18/2019 9:20 PM FIBER TECHNOLOGIST Activ e * RETIRED Are you blind or do you have serious difficulty seeing, even when wearing glasses? Answer Date of Assessment Author Status No 03/18/2019 9:20 PM FIBER TECHNOLOGIST Activ e * Do you have serious difficulty walking or climbing stairs? Answer Date of Assessment Author Status No 03/18/2019 9:20 PM Cristina Mukherjee RN Active * Do you have difficulty dressing or bathing? Answer Date of Assessment Author Status No 03/18/2019 9:20 PM Cristina Mukherjee RN Active * Because of a physical, mental, or emotional condition, do you have difficulty doing errands alone such as visiting a doctor's office or shopping? Answer Date of Assessment Author Status No 03/18/2019 9:20 PM Cristina Mukherjee RN Active documented as of this encounter Mental Status * Because of a physical, mental, or emotional condition, do you have serious difficulty concentrating, remembering, or making decisions? Answer Entry Date Author Status No 03/18/2019 9:20 PM Cristina Mukherjee RN Active documented in this encounter Plan of Treatment Not on file documented as of this encounter Results * PRE-SURGICAL/PRE-PROCEDURE CORONAVIRUS (COVID 19) (12/21/2019 10:59 AM FIBER TECHNOLOGIST) CORONAVIRUS SARS COV 2 PCR (RESP) NOT DETECTED NOT DETECTED 12/22/2019 3:11 PM FIBER TECHNOLOGIST [facility] Comment: A Not Detected (negative) test result for this test means that SARS- CoV-2 RNA was not present in the specimen above the limit of detection. A negative result does not rule out the possibility of COVID-19 and should not be used as the sole basis for treatment or patient management decisions. If COVID-19 is still suspected, based on exposure history together with other clinical findings, re-testing should be considered in consultation with public health authorities. Laboratory test results should always be considered in the context of clinical observations and epidemiological data in making a final diagnosis and patient management decisions. Please review the Fact Sheets and FDA authorized labeling available for health care providers and patients using the following websites: https://www.Smile.CashSentinel/home/Covid-19/HCP/QuestIVD/fact- sheet.html https://www.Smile.CashSentinel/home/Covid-19/Patients/ QuestIVD/fact-sheet.html This test has been authorized by the FDA under an Emergency Use Authorization (EUA) for use by authorized laboratories. Due to the current public health emergency, [facility] is receiving a high volume of samples from a wide variety of swabs and media for COVID-19 testing. In order to serve patients during this public health crisis, samples from appropriate clinical sources are being tested. Negative test results derived from specimens received in non-commercially manufactured viral collection and transport media, or in media and sample collection kits not yet authorized by FDA for COVID-19 testing should be cautiously evaluated and the patient potentially subjected to extra precautions such as additional clinical monitoring, including collection of an additional specimen. Methodology: Nucleic Acid Amplification Test (NAAT) includes RT-PCR or TMA Additional information about COVID-19 can be found at the [facility] website: www.[email or web address].[email or web address]/Covid19. Test performed at [facility] [address] [address] Director: NEHAL COHEN DO,MPH FIRST TEST UNKNOWN 12/21/2019 12:33 PM [facility] EMPLOYED IN HEALTHCARE NO 12/21/2019 12:33 PM [facility] SYMPTOMATIC DEFINED BY CDC NO 12/21/2019 12:33 PM [facility] DATE OF SYMPTOM ONSET NO 12/21/2019 1:51 PM [facility] HOSPITALIZATION STATUS NO 12/21/2019 12:33 PM [facility] PATIENT IN ICU NO 12/21/2019 12:33 PM FIBER TECHNOLOGIST [facility] 12/21/2019 12:33 PM FIBER TECHNOLOGIST [facility] NOT 12/21/2019 1:51 PM FIBER TECHNOLOGIST [facility] PATIENT'S RACE WHITE OR 12/21/2019 12:33 PM FIBER TECHNOLOGIST [facility] ETHNICITY NONHISPANIC 12/21/2019 12:33 PM FIBER TECHNOLOGIST [facility] SOURCE (QST) NASOPHARYNGEAL SWAB 12/21/2019 12:33 PM FIBER TECHNOLOGIST [facility] NASOPHARYNGEAL SWAB / Unknown 12/21/2019 10:59 AM FIBER TECHNOLOGIST us Ned Saldaña MD MICROBIOLOGY - GENERAL SHAHLA THOMPSON Final Result [facility] [address] [place] [address], [facility] [id number] [place] [address], documented in this encounter Visit Diagnoses Diagnosis History of colon polyps- Primary Personal history of colonic polyps documented in this encounter Additional Health Concerns Infection Onset Date Last Indicated Resolved Time COVID-19 Rule Out 12/21/2019 12/21/2019 12/22/2019 3:11 PM FIBER TECHNOLOGIST COVID-19 Rule Out 02/27/2020 02/27/2020 02/27/2020 2:26 PM FIBER TECHNOLOGIST documented as of this encounter Care Teams Siding Applicator Relationship Specialty Start Date End Date Koki Griggs MD [address] [address] PCP - General 09/28/15 documented as of this encounter
--- OUTSIDE RECORDS SUMMARY | 2024-04-23 16:37 | XMS_ITS | Clinical Summary ---
Author Organization [facility] Address [address] [place] [address] Care Team Providers Care Inter Com Installer Name Role Phone Koki Griggs MD Primary Care Provider [phone] Allergies Active Allergy Reactions Criticality Noted Date Comments Aspartame Hives High 07/16/2015 Rosuvastatin GI Upset 12/22/2019 Atorvastatin GI Upset 12/22/2019 Hydrocodone-Acetaminoph en Hives 03/18/2019 Oxybutynin Other (see comment) 12/22/2019 Dry mouth and dry eyes Penicillins Hives High 09/28/2015 Sulfa Antibiotics Hives High 09/28/2015 Medications ezetimibe 10 MG tablet Take 10 mg by mouth daily. Active levETIRAcetam 500 MG tablet Take 500 mg by mouth 2 (two) times daily. Active alendronate 70 MG tablet Take 70 mg by mouth every 7 days. On Sundays. 0 Active levothyroxine 200 MCG tablet Take 200 mcg by mouth every morning. Active vitamin D3, cholecalciferol , 1000 UNIT Tab tablet Take 3,000 Units by mouth daily. Active venlafaxine XR (EFFEXOR-XR) 75 MG 24 hr capsule Take 75 mg by mouth daily. Active XARELTO 20 MG Tab tablet Take 20 mg by mouth daily with supper. 2 Active melatonin 3 MG tablet Take 6 mg by mouth nightly as needed. Active acetaminophen (TYLENOL) 500 MG tablet Take 500 mg by mouth every 6 (six) hours as needed for Pain. Active aspirin 81 MG chewable tablet Chew 1 tablet (81 mg total) by mouth daily. 30 tablet 2 Active atorvastatin (LIPITOR) 40 MG tablet Take 1 tablet (40 mg total) by mouth nightly at bedtime. 30 tablet 2 Active Additional Information Patient taking differently:40 mg OralDaily, Reported on 11/22/2022 clopidogrel (PLAVIX) 75 MG tablet Take 75 mg by mouth daily. 2 Active tiZANidine (ZANAFLEX) 2 MG tablet Take 2 mg by mouth as needed. 3 Active traZODone (DESYREL) 50 MG tablet Take 50 mg by mouth daily. 2 Active Active Problems Problem Noted Date Diagnosed Date Anxiety and depression 05/10/2022 Overview (11/15/2022): Last Assessment & Plan: Mood stable, continue Zoloft, venlafaxine Chronic generalized pain disorder 05/10/2022 Overview (11/15/2022): Last Assessment & Plan: Pain overall well controlled, continue gabapentin, tizanidine, tramadol p.r.n. Chronic right shoulder pain 05/10/2022 Overview (11/15/2022): Last Assessment & Plan: Patient dislikes the Lidoderm patches, will change to lidocaine cream. Continue Tylenol, tramadol p.r.n. Slow transit constipation 05/09/2022 Overview (11/15/2022): Last Assessment & Plan: Stable with p.r.n. bowel regimen Gastrointestinal hemorrhage, unspecified gastrointestinal hemorrhage type 04/25/2022 Overview (11/15/2022): Last Assessment & Plan: Status post EGD, colonoscopy by Dr. Aguero, no evidence of active bleeding. Resumed Plavix and aspirin, continue PPI daily. Will need outpatient GI follow-up Syncope 12/20/2021 Diastolic dysfunction 05/11/2021 Hypertension 05/11/2021 Closed left hip fracture ([facility]) 02/24 Obesity (BMI 30-39.9) 09/04/2019 Overview (02/25/2020): Last Assessment & Plan: We discussed the adverse effects of extra weight on osteoarthritis. The only thing proven to slow the progression of osteoarthritis as weight loss. Every 1 lb lost, relieves 4-6 lb of stress across the knee. Continue weight loss through diet and exercise. Consider low carbohydrate diet. Primary osteoarthritis of left knee 09/04/2019 Overview (02/25/2020): Last Assessment & Plan: We discussed the risks, benefits and alternatives [...] supplement injected today. Follow-up in 3 months. Closed fracture of multiple pubic rami, right, with routine healing, subsequent encounter 04/08/2019 Closed nondisplaced fracture of medial wall of right acetabulum ([facility]) 03/19/2019 Hip fracture ([facility]) 03/18/2019 Bilateral carotid artery stenosis 09/28/2015 CVA (cerebral vascular accident) ([facility]/ C) 09/28/2015 Overview (03/18/2019): Overview: Back in 1997. Left hemiplegia but still able to walk without assistance. Back in 1997. Left hemiplegia but still able to walk without assistance. HLD (hyperlipidemia) 09/28/2015 Hypothyroidism 09/28/2015 Tonic-clonic seizure disorder ([facility]) 09/28/2015 Contracture of hand joint 09/06/2011 Resolved Problems Problem Noted Date Diagnosed Date Resolved Date Abdominal pain 05/02/2020 05/04/2020 Encounters Date Type Department Care Team Description 04/18/2024 12:21 PM CDT - 04/18/2024 6:46 PM CDT Emergency [facility] [place] [address] Raúl Fagan DO Hematuria Discharge Disposition: Home or Self Care (Routine Discharge) 04/18/2024 Travel from Last 3 Months Immunizations Name Administration Dates Next Due Fluzone High Dose - >Age 65 (Prefilled Syringe) 01/14/2019,01/13/2019,11/08/2017, 017,11/10/2015,11/29/2014 Influenza (Generic) 10/23/2013,12/11/2012,2011 Influenza Adult (Generic) 10/23/2013,12/11/2012, 11/29/2011 Zoster (Zostavax) [address]27 Unt/0.65Ml 07/04/2013 Family History Medical History Relation Comments afib Brother 1 pacemaker Brother 1 Heart Disease Father Depression Mother Breast Cancer Other cousin Heart Attack Paternal Grandfather Breast Cancer Sister 1 Heart Attack Sister 1 Relation Status Comments Brother 1 Alive Brother 2 Alive Brother 3 Alive Daughter Alive Father Mother Other Paternal Grandfather Sister 1 Sister 2 Alive Son 1 Alive Son 2 Alive Social History Tobacco Use Types Packs/Day Years [...] on file Sexual Orientation Not on file Last Filed Vital Signs Vital Sign Reading Time Taken Comments Blood Pressure 152/105 04/18/2024 5:00 PM CDT Pulse 76 04/18/2024 5:00 PM CDT Temperature 36.7 C (98 F) 04/18/2024 4:00 PM CDT Respiratory Rate 16 04/18/2024 5:00 PM CDT Oxygen Saturation 98% 04/18/2024 5:00 PM CDT Inhaled Oxygen Concentration - - Weight 96.6 kg (212 lb 15.4 oz) 025 12:26 PM CDT Height 167.6 cm (5' 6 ) 04/18/2024 12:2 6 PM CDT Body Mass Index 34.37 04/18/2024 12:26 PM CDT Plan of Treatment Health Maintenance Due Date Last Done Comments Annual Medicare Wellness Visit 02/12/2008 Pneumococcal Vaccine: 65+ Years (1 of 1 - PCV) 02/12/2008 Zoster Vaccines (2 of 3) 08/29/2013 07/04/2013 RSV Immunization or 60+ Years (1 - 1-dose 75+ series) 2018 COVID-19 Vaccine ( - season) 2023 Influenza Adult (#1) 2023 10/16/2019, 01/14/2019, 01/13/2019, Additional history exists DTaP, Tdap and Td Vaccines (2 - Td or Tdap) 07/21/2030 07/21/2020 Dexa Scan (General) Completed 02/04/2020, 07/30/2015, 07/30/2015 Meningococcal B Vaccine Aged Out No l onger eligible based on patient's age to complete this topic Meningococcal Vaccine Aged Out No tanisha aliza eligible based on patient's age to complete this topic RSV Immunizations Under 20 Months Aged Out No longer eligible based on patient's age to complete this topic Goals Goal Patient Goal Type Associated Problems Recent Progress Patient-Stated? Author Family - family caregiver with be involved in care transitions and discharge planning Lifestyle No Karol Lewis RN Medical Devices Implanted Type Area Onyx Chip Terrazzo Worker Device Identifier Shelf Expiration Date Model / Serial / Lot Knee Shoulder Femur Description:Francesco and 3 screws . Procedures Procedure Name Priority Date/Time Associated Diagnosis Comments CT ABD+PEL WWO CON STAT 04/18/2024 3: 43 PM CDT PARTIAL THROMBOPLASTIN TIME,PTT STAT 04/18/2024 1:00 PM CDT PROTHROMBIN TIME, VENOUS STAT 04/18/2024 1:00 PM CDT HC URINALYSIS AUTO W/O MICRO STAT 04/18/2024 1:00 PM CDT COMPREHENSIVE METABOLIC PANEL STAT 04/18/2024 1:00 PM CDT CBC W/DIFF AUTOMATED STAT 04/18/2024 1:00 PM CDT BONE DENSITY/DEXA Routine 02/04/2020 2:5 9 PM DIRECTOR OF NURSES REGISTRY Asymptomatic menopausal state from Last 3 Months or Most Recently Relevant to Health Maintenance Results * CT ABD+PEL WWO CON (04/18/2024 3:43 PM CDT) Anatomical Region Laterality Modality Abdomen Computed Tomogra phy 04/18/2024 3:57 PM CDT Impressions 04/18/2024 4:09 PM CDT IMPRESSION: 1. Abnormal findings in the urinary bladder. Referred By: Interpreted By: Shashank Schumacher MD, 04/18/2024 3:57 PM Narrative 04/18/2024 4:09 PM CDT [address] [address] EXAM: CT ABD+PEL WWO CON DATE: 04/18/2024 COMPARISON: 05/02/2020 INDICATION: GROSS HEMATURIA AND LEFT LOWER QUADRANT ABDOMINAL TENDERNESS TO PALPATION TECHNIQUE: Precontrast and multiphasic postcontrast imaging with 100 cc intravenous Isovue 300 left antecubital fossa. A dose lowering technique was used for this procedure, which may include, but is not limited to, dose reduction technique, automated exposure control, iterative reconstruction, ALARA (As Low As Reasonably Achievable), or Image Gently techniques. FINDINGS: Noncontrast imaging: Elevated left hemidiaphragm with some probable mild adjacent chronic atelectasis. Aortic valve calcifications. Mitral valve annulus calcifications. Large hiatal hernia containing normal density fat and nearly all of the stomach. No gastric obstruction. Arterial calcifications with no aneurysm of the aorta. Unchanged bone and soft tissue abnormalities associated with the right hip. Postcontrast imaging: Multiple liver cysts do not need follow-up. Normal enhancement of the liver, spleen, adrenal glands, and severely fatty replaced pancreas. Mild increase in the hyperdense debris within the gallbladder. No associated inflammation. Normal kidney enhancement. No urinary tract obstruction. The generalized abnormal appearance of the lima of the urinary bladder on the prior exam have resolved. There is a mixed density abnormality in the inferior bladder on the right side. With patient slightly LPO in position, this appears to originate from the bladder wall rather than be some free intraluminal hemorrhage. CT appearance is most concerning for a focal mass. Dimensions are approximately 2 x 3 x 4 cm. Normal appearance of a small uterus. No adnexal mass. Sigmoid diverticulosis with no inflammatory changes. No bowel obstruction or constipation. No ventral hernia. Somewhat high riding cecum is normal variation. Normal appendix. Old right pelvic fractures. Procedure Note Shashank Schumacher MD - 04/18/[address] [address] EXAM: CT ABD+PEL WWO CON DATE: 04/18/2024 COMPARISON: 05/02/2020 INDICATION: GROSS HEMATURIA AND LEFT LOWER QUADRANT ABDOMINAL TENDERNESSTO PALPATION TECHNIQUE: Precontrast and multiphasic postcontrast imaging with 100 ccintravenous Isovue 300 left antecubital fossa. A dose lowering technique was used for this procedure, which may include,but is not limited to, dose reduction technique, automated exposurecontrol, iterative reconstruction, ALARA (As Low As ReasonablyAchievable), or Image Gently techniques. FINDINGS: Noncontrast imaging: Elevated left hemidiaphragm with some probable mildadjacent chronic atelectasis. Aortic valve calcifications. Mitral valveannulus calcifications. Large hiatal hernia containing normal density fatand nearly all of the stomach. No gastric obstruction. Arterialcalcifications with no aneurysm of the aorta. Unchanged bone and softtissue abnormalities associated with the right hip. Postcontrast imaging: Multiple liver cysts do not need follow-up. Normalenhancement of the liver, spleen, adrenal glands, and severely fattyreplaced pancreas. Mild increase in the hyperdense debris within thegallbladder. No associated inflammation. Normal kidney enhancement. No urinary tract obstruction. The generalizedabnormal appearance of the lima of the urinary bladder on the prior examhave resolved. There is a mixed density abnormality in the inferiorbladder on the right side. With patient slightly LPO in position, thisappears to originate from the bladder wall rather than be some freeintraluminal hemorrhage. CT appearance is most concerning for a focalmass. Dimensions are approximately 2 x 3 x 4 cm. Normal appearance of a small uterus. No adnexal mass. Sigmoiddiverticulosis with no inflammatory changes. No bowel obstruction orconstipation. No ventral hernia. Somewhat high riding cecum is normalvariation. Normal appendix. Old right pelvic fractures. IMPRESSION: 1. Abnormal findings in the urinary bladder. Referred By: Interpreted By: Shashank Schumacher MD, 04/18/2024 3:57 PM Raúl Fagan DO CT Final Result * (ABNORMAL) URINALYSIS (04/18/2024 1:00 PM CDT) SPECIMEN TYPE URINE STRAIGHT CATH 04/18/2024 12:57 PM T [facility] COLOR (U) LIGHT ORANGE 04/18/2024 1:27 PM T [facility] TRANSPARENCY EXTREMELY TURBID 04/18/2024 1:27 PM T [facility] SPECIFIC GRAVITY (U) 1.013 1.001 - 1.030 04/18/2024 1:27 PM T [facility] U PH 6.5 5.0 - 9.0 04/18/2024 1:27 PM T [facility] LEUKOCYTES (U) 500(A) NEGATIVE 04/18/2024 1:27 PM T [facility] NITRITES NEGATIVE NEGATIVE 04/18/2024 1:27 PM T [facility] PROTEIN RANDOM (U) 50(H) <30 MG/DL 04/18/2024 1:27 PM T [facility] GLUCOSE (U) NORMAL NORMAL MG/DL 04/18/2024 1:27 PM T [facility] KETONES MG/DL (U) NEGATIVE NEGATIVE MG/DL 04/18/2024 1:27 PM T [facility] UROBILINOGEN NORMAL NORMAL MG/DL 04/18/2024 1:27 PM T [facility] BILIRUBIN (U) NEGATIVE NEGATIVE MG/DL 04/18/2024 1:27 PM T [facility] BLOOD (U) 3+(A) NEGATIVE 04/18/2024 1:27 PM T [facility] WBC/HPF >100(H) <6 /HPF 04/18/2024 1:27 PM T [facility] WBC CLUMPS PRESENT 04/18/2024 1:27 PM T [facility] RBC/HPF >100(H) <6 /HPF 04/18/2024 1:27 PM CDT [facility] SQUAMOUS EPITHELIALS FEW /HPF 04/18/2024 1:27 PM CDT [facility] URINE, STRAIGHT CATH 04/18/2024 1:00 PM CDT Niesha Lamar DO URINE ORDERABLES Final Result Performing Organization Address City/[facility]/ZIP Co de Phone Number [facility] [address] [place] [address], [place] [phone] * PARTIAL THROMBOPLASTIN TIME,PTT (04/18/2024 1:00 PM CDT) PTT 35.8 25.1 - 36.5 SEC 04/18/2024 1:31 PM CDT [facility] 04/18/2024 1:00 PM CDT us Raúl Fagan DO LABORATORY Final Result Performing Organization Address City/[facility]/ZIP Co de Phone Number [facility] [address] [place] [address], [place] [phone] * PROTIME/INR, VENOUS (04/18/2024 1:00 PM CDT) PROTIME 10.6 10.2 - 12.9 SEC 04/18/2024 1:31 PM CDT [facility] INR 0.9 04/18/2024 1:31 PM CDT [facility] Comment: Recommended INR Therapeutic Goals: 2.0-3.0 Routine Therapy 2.5-3.5 Mechanical Prosthetic Valves (High Risk) 04/18/2024 1:00 PM CDT Raúl Fagan DO LABORATORY Final Result [facility] [address] [place] [address], * (ABNORMAL) COMPREHENSIVE METABOLIC PANEL (04/18/2024 1:00 PM CDT) [facility] GLUCOSE 94 70 - 99 MG/DL 04/18/2024 1:37 PM CDT [facility] BUN 13 7 - 18 MG/DL 04/18/2024 1:37 PM CDT [facility] CREATININE S/P/B 0.68 0.55 - 1.02 MG/DL 04/18/2024 1:37 PM CDT [facility] SODIUM S/P/B 141 136 - 145 MMOL/L 04/18/2024 1:37 PM CDT [facility] POTASSIUM S/P/B 4.1 3.5 - 5.1 MMOL/L 04/18/2024 1:37 PM CDT [facility] CHLORIDE S/P/B 109 97 - 115 MMOL/L 04/18/2024 1:37 PM CDT [facility] CO2 27.8 21 - 32 MMOL/L 04/18/2024 1:37 PM CDT [facility] CALCIUM S/P/B 9.1 8.5 - 10.1 MG/DL 04/18/2024 1:37 PM CDT [facility] BILIRUBIN TOTAL S/P/B 0.7 0.2 - 1.2 MG/DL 04/18/2024 1:37 PM CDT [facility] Comment: THIS ASSAY IS NOT RECOMMENDED FOR PATIENTS UNDERGOING TREATMENT WITH ELTROMBOPAG DUE TO THE POTENTIAL FOR FALSELY ELEVATED RESULTS. TOTAL PROTEIN S/P/B 6.8 6.4 - 8.2 G/DL 04/18/2024 1:37 PM CDT [facility] ALBUMIN S/P/B 3.1(L) 3.4 - 5.0 G/DL 04/18/2024 1:37 PM CDT [facility] AST 14(L) 15 - 37 U/L 04/18/2024 1:37 PM CDT [facility] ALT 17 14 - 55 U/L 04/18/2024 1:37 PM CDT [facility] ALKALINE PHOSPHATASE S/P/B 139(H) 50 - 136 U/L 04/18/2024 1:37 PM CDT [facility] ANION GAP 4.2 2 - 10 MMOL/L 04/18/2024 1:37 PM CDT [facility] BUN CREATININE RATIO 19.2 6 - 26 04/18/2024 1:37 PM CDT [facility] A/G RATIO 0.8(L) 1.0 - 2.0 RATIO 04/18/2024 1:37 PM CDT [facility] GFR ESTIMATE 87(L) >90 ML/MIN/1.7 3 M2 04/18/2024 1:37 PM CDT [facility] Comment: NOTE: eGFR is not calculated for patients <18 years of age or gender unknown. This is an estimated GFR calculation using the new CKD EPI creatinine equation without race and so does not require a correction factor for race. This estimated GFR should not be used for calculating drug doses. 04/18/2024 1:00 PM CDT Niesha Lamar DO LABORATORY Final Result [facility] [address] [place] [address], [place] [phone] * (ABNORMAL) CBC W/DIFF AUTOMATED (04/18/2024 1:00 PM CDT) [facility] WBC 7.97 4.5 - 11.0 x10'3/uL 04/18/2024 1:14 PM CDT [facility] RBC 4.14(L) 4.20 - 5.40 x10'6/uL 04/18/2024 1:14 PM CDT [facility] HGB 13.1 12.0 - 16.0 G/DL 04/18/2024 1:14 PM CDT [facility] HCT 39.7 38.0 - 48.0 % 04/18/2024 1:14 PM CDT [facility] MCV 95.9 81.0 - 99.0 FL 04/18/2024 1:14 PM CDT [facility] MCH 31.6(H) 27.0 - 31.0 PG 04/18/2024 1:14 PM CDT [facility] MCHC 33.0 32.0 - 36.0 G/DL 04/18/2024 1:14 PM CDT [facility] RDW 12.7 11.5 - 14.5 % 04/18/2024 1:14 PM CDT [facility] PLT 207 130 - 400 x10'3/uL 04/18/2024 1:14 PM CDT [facility] MPV 9.0(L) 9.3 - 12.2 FL 04/18/2024 1:14 PM CDT [facility] DIFFERENTIAL TYPE AUTOMATED DIFFERENTIAL 04/18/2024 1:14 PM CDT [facility] NEUTROPHILS % 69.5 % 04/18/2024 1:14 PM CDT [facility] LYMPHOCYTES % 21.3 % 04/18/2024 1:14 PM CDT [facility] MONOCYTES % 5.9 % 04/18/2024 1:14 PM CDT [facility] EOSINOPHILS 2.6 % 04/18/2024 1:14 PM CDT [facility] BASOPHILS 0.3 % 04/18/2024 1:14 PM CDT [facility] IMMATURE GRANS % 0.4 % 04/19/19 1:14 PM CDT [facility] ABS. NEUTROPHILS 5.54 1.80 - 7.70 x10'3/uL 04/18/2024 1:14 PM CDT [facility] ABS. LYMPHOCYTES 1.70 1.00 - 4.80 x10'3/uL 04/18/2024 1:14 PM CDT [facility] ABS. MONOCYTES 0.47 0.24 - 0.86 x10'3/uL 04/18/2024 1:14 PM CDT [facility] ABS. EOSINOPHILS 0.21 0.04 - 0.36 x10'3/uL 04/18/2024 1:14 PM CDT [facility] ABS. BASOPHILS 0.02 0.01 - 0.08 x10'3/uL 04/18/2024 1:14 PM CDT [facility] ABS. IMMATURE GRANULOCYTES 0.03 0.00 - 0.49 x10'3/uL 04/18/2024 1:14 PM CDT [facility] 04/18/2024 1:00 PM CDT us Niesha Lamar DO LABORATORY Final Result [facility] [address] [place] [address], * BONE DENSITY/DEXA (02/04/2020 2:59 PM DIRECTOR OF NURSES REGISTRY) Anatomical Region Laterality Modality Bone Mammography 02/05/2020 10:4 3 AM DIRECTOR OF NURSES REGISTRY Impressions 02/05/2020 10:47 AM DIRECTOR OF NURSES REGISTRY IMPRESSION: Lumbar spine: Lowest T score is -0.8 at L1. Within normal limits. Hips: Lowest T score is -2.5 at the left femoral neck. Severe loss of bone mineral density indicating osteoporosis. Frax: 10 year Probability of major osteoporotic fracture: 14%. 10 year Probability of hip fracture: 4.2%. Interpreted By: Aurelio Acuna MD, 02/05/2020 10:43 AM Narrative 02/05/2020 10:47 AM DIRECTOR OF NURSES REGISTRY Examination: Bone Density Axial Exam Date/Time: 02/04/2020 2:57 PM Reason For Exam: Postmenopausal. Prior right hip surgery. Comparison: 08/14/2005 Findings: DEXA bone densitometry The bone mineral density (BMD) was determined by dual-energy x-ray absorptiometry, the results are as follows: Lumbar spine: L1: 0.901 (GM/SQCM). T score: -0.8. L2: 1.058 (GM/SQCM). T score: 0.3. L3: 1.236 (GM/SQCM). T score: 1.4. L4: 1.271 (GM/SQCM). T score: 1.9. L1-L4: 1.146 (GM/SQCM). T score: 0.9. Hips: Left femoral neck: 0.572 (GM/SQCM). T score: -2.5. Left proximal femur: 0.702 (GM/SQCM). T score:-2.0. On 08/14/2005, average T score of L1-L4 was 0.7 On 08/14/2005, left hip T score was -0.9. Procedure Note Aurelio Acuna MD - 02/05/2020 Examination: Bone Density Axial Exam Date/Time: 02/04/2020 2:57 PM Reason For Exam: Postmenopausal. Prior right hip surgery. Comparison: 08/14/2005 Findings: DEXA bone densitometry The bone mineral density (BMD) was determined bydual-energy x-ray absorptiometry, the results are as follows: Lumbar spine: L1: 0.901 (GM/SQCM). T score: -0.8. L2: 1.058 (GM/SQCM). T score: 0.3. L3: 1.236 (GM/SQCM). T score: 1.4. L4: 1.271 (GM/SQCM). T score: 1.9. L1-L4: 1.146 (GM/SQCM). T score: 0.9. Hips: Left femoral neck: 0.572 (GM/SQCM). T score: -2.5. Left proximal femur: 0.702 (GM/SQCM). T score:-2.0. On 08/14/2005, average T score of L1-L4 was 0.7 On 08/14/2005, left hip T score was -0.9. IMPRESSION: Lumbar spine: Lowest T score is -0.8 at L1. Within normal limits. Hips: Lowest T score is -2.5 at the left femoral neck. Severe loss ofbone mineral density indicating osteoporosis. Frax: 10 year Probability of major osteoporotic fracture: 14%. 10 year Probability of hip fracture: 4.2%. 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 Advance Directives and Living Will 01/02/2022 8:07 AM 11/24/20 POLST FORM * Full Code (Latest Code Status on File) Date Activated Date Inactivated Comments 12/20/2021 8:42 PM 12/23/2021 9:09 PM * Full Code Date Activated Date Inactivated Comments 05/03/2020 12:23 AM 05/04/2020 1:28 PM * Full Code Date Activated Date Inactivated Comments 02/25/2020 2:52 PM 02/27/2020 6:47 PM * Full Code Date Activated Date Inactivated Comments 03/18/2019 9:18 PM 03/20/2019 5:58 PM Care Teams Inter Com Installer Relationship Specialty Start Date End Date Koki Griggs MD [address] [facility] [address] [place] [address] PCP - General 09/28/15
--- OUTSIDE RECORDS SUMMARY | 2024-04-23 16:38 | XMS_ITS | Clinical Summary ---
Author Organization [facility] Address [address] [place] [address] Phone Care Team Providers Care Recruitment Internship Name Role Phone Koki Griggs MD Primary Care Provider [phone] Allergies Active Allergy Reactions Criticality Noted Date Comments Aspartame Hives High 09/28/2015 Penicillins Hives High 09/28/2015 Sulfa (Sulfonamide Antibiotics) Hives High 09/06 Medications ezetimibe (ZETIA) 10 mg tablet Take 10 mg by mouth daily. Active venlafaxine (EFFEXOR) 75 mg tablet Take 75 mg by mouth daily . Active Flaxseed Oil Oil Take 1 Capsule by mouth daily . Active Cholecalciferol , Vitamin D3, 3,000 unit Tablet Take 1 Tablet by mouth daily . Active levETIRAcetam (KEPPRA) 500 mg tablet Take 1 Tablet (500 mg) by mouth 2 times daily. 60 Tablet 0 09/29/2015 Active clopidogrel (PLAVIX) 75 mg Tablet Take 1 Tablet (75 mg) by mouth daily. 30 Tablet 0 09/29/2015 Active aspirin (ECOTRIN EC) 81 mg Tablet, Delayed Release (E.C.) Take 81 mg by mouth daily. Active MULTIVIT-MIN/IR ON/FOLIC/LUTEIN (CENTRUM SILVER WOMEN ORAL) Take 1 Tablet by mouth daily. Active levothyroxine 200 mcg tablet Take 1 Tablet by mouth daily. 03/08/2016 Active ibuprofen (MOTRIN) 800 mg tablet 01/10/2016 Active Active Problems Problem Noted Date Diagnosed Date CVA (cerebral vascular accident) 09/28/2015 Overview (09/28/2015): Back in 1997. Left hemiplegia but still able to walk without assistance. Bilateral carotid artery stenosis 09/28/2015 HLD (hyperlipidemia) 09/28/2015 Tonic-clonic seizure disorder 09/28/2015 Hypothyroidism 09/28/2015 Family History Medical History Relation Name Comments Healthy Brother Heart Disease Father High Cholesterol Father Hypertension Father Depression Mother Other Mother suicide Breast Cancer Sister Healthy Sister Relation Name Status Comments Brother Alive Father (Age 88) Mother Sister Social History Tobacco Use Types Packs/Day Years Used Date Smoking Tobacco: Former Cigarettes 1 20 0 09/27/1977 - 09/27/1997 Alcohol Use Standard Drinks/Week Comments Yes 0 (1 standard drink = 0.6 oz pur e alcohol) rare Comments No Sex and Gender Information Value Date Recorded Sex Assigned at Not on file Legal Sex Female 8:31 AM CDT Gender Identity Not on file Sexual Orientation Not on file Last Filed Vital Signs Vital Sign Reading Time Taken Comments Blood Pressure 134/92 03/14/2016 10:24 AM HOME HEALTH AID Pulse 74 03/14/2016 10:24 AM HOME HEALTH AID Temperature 36.7 C (98.1 F) 09/29/2015 3:29 PM CDT Respiratory Rate 20 09/29/2015 3:29 PM CDT Oxygen Saturation 94% 09/29/2015 3:29 PM CDT Inhaled Oxygen Concentration - - Weight 107.5 kg (237 lb) 03/14/2016 10:24 AM HOME HEALTH AID Height 170.2 cm (5' 7 ) 03/14/2016 10:24 AM HOME HEALTH AID Body Mass Index 37.12 03/14/2016 10:24 AM HOME HEALTH AID Plan of Treatment Health Maintenance Due Date Last Done Comments DTAP/TDAP/TD VACCINES (1 - Tdap) 1962 PNEUMOCOCCAL VACCINE 50+ YEARS (1 of 1 - PCV) 02/11/18 94 ZOSTER VACCINE (1 of 2) 1993 OSTEOPOROSIS SCREENING 02/12/2008 RSV VACCINE (60+ or ) (1 - 1-dose 75+ series) 2018 INFLUENZA VACCINE (#1) 2023 Medical Devices Implanted Type Area Aging Box Hand Device Identifier Shelf Expiration Date Model / Serial / Lot Pin Pin Finger Insurance [facility] [id number] Advance Directives For more information, please contact: [phone] * Full Code (Latest Code Status on File) Date Activated Date Inactivated Comments 09/28/2015 2:02 PM 09/29/2015 8:42 PM Care Teams Recruitment Internship Relationship Specialty Start Date End Date Koki Griggs MD [address] [facility] [address] [place] [address] PCP - General Family Practice 09/28/15
--- OUTSIDE RECORDS SUMMARY | 2024-04-23 16:38 | XMS_ITS | Encounter Summary ---
Author Organization [facility] Address [address] [place] [address] Care Team Providers Care Servicer Coin Machines Name Role Phone Koki Griggs MD Primary Care Provider [phone] Encounter Details Date Type Department Care Team (Late st Contact Info) Description 02/23/2020 Abstract [facility], [address] [address] Jarred Ayala MA Social History Tobacco Use [...] have Coronavirus / COVID-19? No / Unsure 02/25/2020 11:46 AM REFUSE AND RECYCLING WORKER documented as of this encounter Functional Status * Question Answer Date of Assessment Author Status Do you have serious difficulty walking or climbing stairs? Yes 02/25/2020 4:39 PM REFUSE AND RECYCLING WORKER Ade Segundo RN A ctive * Question Answer Date of Assessment Author Status Do you have difficulty dressing or bathing? Yes 02/25/2020 4:39 PM REFUSE AND RECYCLING WORKER Ade Segundo RN Active Because of a physical, mental, or emotional condition, do you have difficulty doing errands alone such as visiting a doctor's office or shopping? Yes 02/25/2020 4:39 PM REFUSE AND RECYCLING WORKER Ade Segundo RN Ac tive * RETIRED Are you deaf or do you have serious difficulty hearing Answer Date of Assessment Author Status No 03/18/2019 9:20 PM REFUSE AND RECYCLING WORKER Activ e * RETIRED Are you blind or do you have serious difficulty seeing, even when wearing glasses? Answer Date of Assessment Author Status No 03/18/2019 9:20 PM REFUSE AND RECYCLING WORKER Activ e * Do you have serious difficulty walking or climbing stairs? Answer Date of Assessment Author Status No 03/18/2019 9:20 PM REFUSE AND RECYCLING WORKER Cristina Daley RN Active * Do you have difficulty dressing or bathing? Answer Date of Assessment Author Status No 03/18/2019 9:20 PM REFUSE AND RECYCLING WORKER Cristina Daley RN Active * Because of a physical, mental, or emotional condition, do you have difficulty doing errands alone such as visiting a doctor's office or shopping? Answer Date of Assessment Author Status No 03/18/2019 9:20 PM Cristina Mukherjee RN Active documented as of this encounter Mental Status * Question Answer Entry Date Author Status Because of a physical, mental, or emotional condition, do you have serious difficulty concentrating, remembering, or making decisions? No 02/25/2020 4:39 PM REFUSE AND RECYCLING WORKER Ade Segundo RN Active * Because of a physical, mental, or emotional condition, do you have serious difficulty concentrating, remembering, or making decisions? Answer Entry Date Author Status No 03/18/2019 9:20 PM Cristina Mukherjee RN Active documented in this encounter Plan of Treatment Not on file documented as of this encounter Procedures Procedure Name Priority Date/Time Associated Diagnosis Comments SARS-COV-2 COVID-19 ANTIBODY Routine 02/13/2020 CBC (OUTSIDE LAB) Routine 02/13/2020 COMPREHENSIVE METABOLIC PANEL Routine 02/13/2020 documented in this encounter Results * SARS-COV-2 COVID-19 ANTIBODY (02/13/2020) Pathologist [facility] SARS-COV-2 IGG Not detected 02/13/2020 us Doc [facility] Abstract PROCEDURES-UNRESULTED Final Result * COMPREHENSIVE METABOLIC PANEL (02/13/2020) Pathologist [facility] SODIUM S/P/B 138 POTASSIUM S/P/B 4.1 CO2 25 CHLORIDE S/P/B 105 GLUCOSE 96 mg/dL CALCIUM S/P/B 9.2 BUN 16 CREATININE S/P/B 0.6 0.5 - 1.0 EGFR NON-AFR. AMER. >60 <=90 ALKALINE PHOSPHATASE S/P/B 101 ALT 17 AST 16 BILIRUBIN TOTAL S/P/B 0.45 ALBUMIN S/P/B 3.9 3.5 - 5.0 TOTAL PROTEIN S/P/B 7.1 02/13/2020 us Doc [facility] Abstract LABORATORY Final Result * CBC (OUTSIDE LAB) (02/13/2020) WBC 9.3 HGB 13.3 HCT 39.3 PLT 264 02/13/2020 us Doc [facility] Abstract LAB-OUTSIDE/ABSTRACTED Final Result documented in this encounter Visit Diagnoses Not on filedocumented in this encounter Additional Health Concerns Infection Onset Date Last Indicated Resolved Time COVID-19 Rule Out 02/27/2020 02/27/2020 02/27/2020 2:26 PM REFUSE AND RECYCLING WORKER documented as of this encounter Care Teams Servicer Coin Machines Relationship Specialty Start Date End Date Koki Griggs MD [address] [address] PCP - General 09/28/15 documented as of this encounter
--- OUTSIDE RECORDS SUMMARY | 2024-04-23 16:38 | XMS_ITS | Continuity of Care Document ---
Author Name Auto Generated, Auto Generated Organization [employer] Support Name Relationship Address Phone Luis Hortencia Financial Responsible Republican [address] [place] [address] Hortencia Smith Self [address] [place] [address] John Smith Spouse Unknown Unavailable Carmen Palomino Other Unknown Unavailable Summary Purpose Consult/Referral Allergies, Adverse Reactions, Alerts Type Description/Agent Code Date Allergy Active Date Allergy Inactivated Date of Last Reaction Adverse Reactions Severity Status Comments Source of Information FDB Medic ation Ingre dient atorvastatin Active Julia ent History FDB Medic ation Ingre dient oxybutynin Active Patien t History FDB Medic ation Ingre dient rosuvastatin Active Julia ent History Food Aspartame Active Pat ient History FDB Medic ation Ingre dient penicillin Active Patien t History FDB Speci fic Aller gen Group Sulfa (Sulfonamide Antibiotics) Active Pat ient History Medications No Known Medications Conditions/Problems Problem/Diagnosis Awareness of Diagnosis Code (ICD-10) Onset Date (Start Date) Resolution Date (End Date) Status Source Comments EPILEPSY, UNSPECIFIED, NOT INTRACTABLE, WITHOUT STATUS EPILEPTICUS G40.909 05/22/19 22 Active MD Chris Mcgrath 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 05/22/19 Active MD Chris Mcgrath OBESITY, UNSPECIFIED E66.9 0 22 Active MD Chris Mcgrath BODY MASS INDEX [BMI] 32.0-32.9, ADULT Z68.32 05/22/19 22 Active MD Chris Mcgrath 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 05/22/19 Active MD Chris Mcgrath DIVERTICULOSIS 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 PERFORATION 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 BLEEDING K57.30 05/22/19 22 Active MD Chris Mcgrath OVERACTIVE BLADDER N32.81 04/16/20 22 Active MD Chris Mcgrath MAJOR DEPRESSIVE DISORDER, SINGLE EPISODE, UNSPECIFIED F32.9 05/22/19 22 Active MD Chris Mcgrath HYPERTENSIVE HEART DISEASE WITH HEART FAILURE I11.0 05/22/19 22 Active MD Chris Mcgrath CHRONIC DIASTOLIC (CONGESTIVE) HEART FAILURE I50.32 05/22/19 22 Active MD Chris Mcgrath MIXED HYPERLIPIDEMIA E78.2 0 22 Active MD Chris Mcgrath SLOW TRANSIT CONSTIPATION K59.01 05/22/19 22 Active MD Chris Mcgrath DRUG INDUCED CONSTIPATION K59.03 05/22/19 22 Active MD Chris Mcgrath ADVERSE EFFECT OF OTHER OPIOIDS, SUBSEQUENT ENCOUNTER T40.2X5D 05/22/19 22 Active MD Chris Mcgrath UNSPECIFIED URINARY INCONTINENCE R32 05/22/19 22 Active MD Chris Mcgrath LEATHER FINISHER (CURRENT) USE OF ANTITHROMBOTICS/ANTI PLATELETS Z79.02 05/22/19 22 Active MD Chris Mcgrath LEATHER FINISHER (CURRENT) USE OF ASPIRIN Z79.82 05/22/19 22 Active MD Chris Mcgrath VITAMIN D DEFICIENCY, UNSPECIFIED E55.9 05/22/19 22 Active MD Chris Mcgrath 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 05/22/19 22 Active MD Chris Mcgrath STENOSIS OF PERIPHERAL VASCULAR STENT, SUBSEQUENT ENCOUNTER T82.856D 05/22/19 22 Active MD Chris Mcgrath 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
== END 2024-04-23 14:41 | disposition home or self-care (01) ==
LOC: ANHSURGERY 15:05
PROVIDERS: PCP Family Medicine; Visit Provider Urology
DX: Z01.818 Encounter for other preprocedural examination (principal); R94.31 Abnormal electrocardiogram [ECG] [EKG]; R31.0 Gross hematuria; E78.00 Pure hypercholesterolemia, unspecified
CPT/HCPCS: 36415; 80048; 85025; 85610; 85730; 93005

== ENCOUNTER 2024-04-30 10:47 | Observation (INO) | payer MEDICARE, SELFPAY ==
[2024-04-21 15:13] VITALS: BMI 31.6
--- NOTE | 2024-04-21 15:51 | PC.NURSE ---
Report to the Outpatient Waiting Room, entrance under the green pavilion located off [facility], at time ___11:30AM____ on date __04/29/24 . Planned Procedure Time: __1:30PM .? Time changes happen often and if your time is changed the preop area will call you the afternoon before. - You and your visitor will be asked to self-screen and do not enter if you have any COVID symptoms. Please call surgeon if you need to reschedule. - A mask is optional within the hospital at this time. Patients may have clear liquids (water, carbonated beverages, clear teas, apple juice) until 3 hours prior to surgery (10:30AM) with a maximum of 20 ounces. - No food from midnight until time of surgery and no smoking, or chewing tobacco (or any form of nicotine). No chewing gum, candy or mints. Take only the following medications with a SIP of water on the morning of surgery: __CIPRO, KEPPRA, LEVOTHYROXINE, VENLAFAXINE DO NOT STOP ANY OF YOUR OTHER PRESCRIPTION MEDICATIONS PRIOR TO SURGERY EXCEPT THE FOLLOWING Hold all vitamins and supplements for 3 days per anesthesiologist. Medications to discontinue per physician ___HOLD PLAVIX AND ASPIRIN 7 DAYS PRE-OP PER DR HERRON Date to take last dose 04/21/24 Please no make-up, nail lithuanian, hairspray, perfume, deodorant, or body powder the day of surgery.? No jewelry (including any body piercings) or valuables the day of surgery, leave them at home.? Please take a shower or bath the night before, or the morning of, surgery with an antibacterial soap.? Wear comfortable, loose fitting clothing.? - Jewelry must be removed prior to entering the operating room.? Rings and piercings that are not removed may be cut off. - The hospital will not accept responsibility for valuables.? - Please leave all valuables, including medications, at home the day of surgery. If you are going home after surgery, a licensed special education bus driver must drive you home.? - NO public transportation without another adult if you receive anesthesia. - We recommend that an adult stay with you for 24 hours following discharge. - We also recommend that you do not drive, make important decision, drink alcoholic beverages, or take any drugs that were not prescribed by your health care provider for at least 24 hours after your discharge time. Follow any additional instructions given to you from your surgeon. Telephone instructions given to ____DAUGHTER and asked if any additional questions and then verbalized understanding. Patient advised to call surgeon office or pre surgery nurse liaison [phone] if any additional questions.
[2024-04-29] VITALS (15 sets, daily range): BP systolic 104–146; BP diastolic 57–79; PULSE 76–85; RESP 12–18; TEMP 36.4–36.8; O2SAT 91–100; BMI 32.5
--- OUTSIDE RECORDS SUMMARY | 2024-04-29 00:57 | XMS_ITS | Encounter Summary ---
Author Organization [facility] Address [address] [place] [address] Care Team Providers Care Theater Set Production Designer Name Role Phone Koki Griggs MD Primary Care Provider [phone] Encounter Details Date Type Department Care Team ([facility] st Contact Info) Description 03/09/2022 [email or web address] Message Enc [place] [facility], [address] [address] [place] Provider Lipid panel Social History Tobacco [...] Coronavirus/COVID-19? No / Unsure 02/21/2022 1:54 PM AIRPLANE CAPTAIN documented as of this encounter Functional Status * RETIRED Are you deaf or do you have serious difficulty hearing Answer Date of Assessment Author Status No 12/23/2021 4:58 PM AIRPLANE CAPTAIN Activ e * RETIRED Are you blind or do you have serious difficulty seeing, even when wearing glasses? Answer Date of Assessment Author Status No 12/23/2021 4:58 PM AIRPLANE CAPTAIN Activ e * Do you have serious difficulty walking or climbing stairs? Answer Date of Assessment Author Status Yes 12/23/2021 4:58 PM AIRPLANE CAPTAIN Maryan Pearl RN Active * Do you have difficulty dressing or bathing? Answer Date of Assessment Author Status Yes 12/23/2021 4:58 PM AIRPLANE CAPTAIN Maryan Pearl RN Active * Because of a physical, mental, or emotional condition, do you have difficulty doing errands alone such as visiting a doctor's office or shopping? Answer Date of Assessment Author Status Yes 12/23/2021 4:58 PM AIRPLANE CAPTAIN Maryan Pearl RN Active documented as of this encounter Mental Status * Because of a physical, mental, or emotional condition, do you have serious difficulty concentrating, remembering, or making decisions? Answer Entry Date Author Status No 12/23/2021 4:58 PM AIRPLANE CAPTAIN Maryan Pearl RN Active documented in this encounter Plan of Treatment Not on file documented as of this encounter Goals Goal Patient Goal Type Associated Problems Recent Progress Patient-Stated? Author Family - family caregiver with be involved in care transitions and discharge planning Lifestyle No Karol Lewis RN documented as of this encounter Visit Diagnoses Not on filedocumented in this encounter Care Teams Theater Set Production Designer Relationship Specialty Start Date End Date Koki Griggs MD [address] [address] PCP - General 09/28/15 documented as of this encounter
--- OUTSIDE RECORDS SUMMARY | 2024-04-29 00:57 | XMS_ITS | Clinical Summary ---
Author Organization [facility] Address [address] [place] [address] Phone Care Team Providers Care Bin Tripper Operator Name Role Phone Koki Griggs MD Primary Care Provider [phone] Allergies Active Allergy Reactions Criticality Noted Date [...] Comments Blood Pressure 134/92 03/14/2016 10:24 AM MILITARY TECHNOLOGY MANAGER Pulse 74 03/14/2016 10:24 AM MILITARY TECHNOLOGY MANAGER Temperature 36.7 C (98.1 F) 09/29/2015 3:29 PM CDT Respiratory Rate 20 09/29/2015 3:29 PM CDT Oxygen Saturation 94% 09/29/2015 3:29 PM CDT Inhaled Oxygen Concentration - - Weight 107.5 kg (237 lb) 03/14/2016 10:24 AM MILITARY TECHNOLOGY MANAGER Height 170.2 cm (5' 7 ) 03/14/2016 10:24 AM MILITARY TECHNOLOGY MANAGER Body Mass Index 37.12 03/14/2016 10:24 AM MILITARY TECHNOLOGY MANAGER Plan of Treatment Health Maintenance Due Date Last Done Comments DTAP/TDAP/TD VACCINES (1 - Tdap) 1962 PNEUMOCOCCAL VACCINE 50+ YEARS (1 of 1 - PCV) 02/11/18 94 ZOSTER VACCINE (1 of 2) 1993 OSTEOPOROSIS SCREENING 02/12/2008 RSV VACCINE (60+ or ) (1 - 1-dose 75+ series) 2018 INFLUENZA VACCINE (#1) 2023 Medical Devices Implanted Type Area Generator Switchboard Operator Device Identifier Shelf Expiration Date Model / Serial / Lot Pin Pin Finger Insurance [facility] [id number] Advance Directives For more information, please contact: [phone] * Full Code (Latest Code Status on File) Date Activated Date Inactivated Comments 09/28/2015 2:02 PM 09/29/2015 8:42 PM Care Teams Bin Tripper Operator Relationship Specialty Start Date End Date Koki Griggs MD [address] [facility] [address] [place] [address] PCP - General Family Practice 09/28/15
--- OUTSIDE RECORDS SUMMARY | 2024-04-29 00:57 | XMS_ITS | Encounter Summary ---
Author Organization [facility] Address [address] [place] [address] Care Team Providers Care Heavy Equipment Rental Manager Name Role Phone Koki Griggs MD Primary Care Provider [phone] Encounter Details Date Type Department Care Team (Late st Contact Info) Description 03/08/2022 Abstract [facility], [address] [address] Jarred Ayala MA Social History Tobacco Use [...] Coronavirus/COVID-19? No / Unsure 02/21/2022 1:54 PM METAL SPRAYER PROTECTIVE COATING documented as of this encounter Functional Status * RETIRED Are you deaf or do you have serious difficulty hearing Answer Date of Assessment Author Status No 12/23/2021 4:58 PM METAL SPRAYER PROTECTIVE COATING Activ e * RETIRED Are you blind or do you have serious difficulty seeing, even when wearing glasses? Answer Date of Assessment Author Status No 12/23/2021 4:58 PM METAL SPRAYER PROTECTIVE COATING Activ e * Do you have serious difficulty walking or climbing stairs? Answer Date of Assessment Author Status Yes 12/23/2021 4:58 PM METAL SPRAYER PROTECTIVE COATING Maryan Pearl RN Active * Do you have difficulty dressing or bathing? Answer Date of Assessment Author Status Yes 12/23/2021 4:58 PM METAL SPRAYER PROTECTIVE COATING Maryan Pearl RN Active * Because of a physical, mental, or emotional condition, do you have difficulty doing errands alone such as visiting a doctor's office or shopping? Answer Date of Assessment Author Status Yes 12/23/2021 4:58 PM METAL SPRAYER PROTECTIVE COATING Maryan Pearl RN Active documented as of this encounter Mental Status * Because of a physical, mental, or emotional condition, do you have serious difficulty concentrating, remembering, or making decisions? Answer Entry Date Author Status No 12/23/2021 4:58 PM METAL SPRAYER PROTECTIVE COATING Maryan Pearl RN Active documented in this [...] on filedocumented in this encounter Care Teams Heavy Equipment Rental Manager Relationship Specialty Start Date End Date Koki Griggs MD [address] [facility] [address] [place] [address] PCP - General 09/28/15 documented as of this encounter
--- OUTSIDE RECORDS SUMMARY | 2024-04-29 00:57 | XMS_ITS | Encounter Summary ---
Author Organization [facility] Address [address] [place] [address] Care Team Providers Care Dance Therapist Name Role Phone Koki Griggs MD Primary Care Provider [phone] Encounter Details Date Type Department Care Team (Late st Contact Info) Description 02/23/2020 Abstract [facility] [address] [address] Jarred Ayala MA Social History Tobacco Use [...] COVID-19? No / Unsure 02/25/2020 11:46 AM INSTALLATION MANAGER documented as of this encounter Functional Status * Question Answer Date of Assessment Author Status Do you have serious difficulty walking or climbing stairs? Yes 02/25/2020 4:39 PM INSTALLATION MANAGER Ade Segundo RN A ctive * Question Answer Date of Assessment Author Status Do you have difficulty dressing or bathing? Yes 02/25/2020 4:39 PM INSTALLATION MANAGER Ade Segundo RN Active Because of a physical, mental, or emotional condition, do you have difficulty doing errands alone such as visiting a doctor's office or shopping? Yes 02/25/2020 4:39 PM INSTALLATION MANAGER Ade Segundo RN Ac tive * RETIRED Are you deaf or do you have serious difficulty hearing Answer Date of Assessment Author Status No 03/18/2019 9:20 PM INSTALLATION MANAGER Activ e * RETIRED Are you blind or do you have serious difficulty seeing, even when wearing glasses? Answer Date of Assessment Author Status No 03/18/2019 9:20 PM INSTALLATION MANAGER Activ e * Do you have serious difficulty walking or climbing stairs? Answer Date of Assessment Author Status No 03/18/2019 9:20 PM INSTALLATION MANAGER Cristina Daley RN Active * Do you have difficulty dressing or bathing? Answer Date of Assessment Author Status No 03/18/2019 9:20 PM INSTALLATION MANAGER Cristina Daley RN Active * Because of [...] or making decisions? No 02/25/2020 4:39 PM INSTALLATION MANAGER Ade Segundo RN Active * Because of [...] * SARS-COV-2 COVID-19 ANTIBODY (02/13/2020) Pathologist [facility] SARS-COV-2 IGG Not detected 02/13/2020 us Doc [facility] Abstract PROCEDURES-UNRESULTED Final Result * COMPREHENSIVE METABOLIC PANEL (02/13/2020) Pathologist [facility] SODIUM S/P/B 138 POTASSIUM S/P/B 4.1 CO2 [...] Rule Out 02/27/2020 02/27/2020 02/27/2020 2:26 PM INSTALLATION MANAGER documented as of this encounter Care Teams Dance Therapist Relationship Specialty Start Date End Date Koki Griggs MD [address] [address] PCP - General 09/28/15 documented as of this encounter
--- OUTSIDE RECORDS SUMMARY | 2024-04-29 00:57 | XMS_ITS | Encounter Summary ---
Author Organization [facility] Address [address] [place] [address] Care Team Providers Care Pbx Supervisor Name Role Phone Koki Griggs MD Primary Care Provider [phone] Philip Ricci MD Unavailable Encounter Details Date Type Department Care Team (Late st Contact Info) Description 06/30/2021 Telephone [facility] Radiology [address] [place] [address] Mohan Novak MD [address] [facility] [address] [place] [address] Social History Tobacco Use Types Packs/Day Years [...] on file Legal Sex Female 9:42 AM MANAGER SHIPPING Gender Identity Not on file Sexual Orientation Not on file Occupation Industry Job Start Date Job End Date retired Not on file Not on file Not on file documented as of this encounter Plan of Treatment Not on file documented as of this encounter Visit Diagnoses Not on filedocumented in this encounter Care Teams Pbx Supervisor Relationship Specialty Start Date End Date Koki Griggs MD [address] [address] PCP - General Family Medicine 10/28/18 Philip Ricci MD [address] [address] Consulting Physician Gastroenterology 04/28/22 documented as of this encounter
--- OUTSIDE RECORDS SUMMARY | 2024-04-29 00:57 | XMS_ITS | Clinical Summary ---
Author Organization [facility] Address [address] [place] [address] Care Team Providers Care Equipment Oiler Name Role Phone Koki Griggs MD Primary Care Provider [phone] Philip Ricci MD Unavailable Allergies Active Allergy [...] 09/28/2015 Assessment & Plan (03/06/2024 7:59 AM COLD STORAGE SUPERVISOR): Stable continue Lipitor. Hypothyroidism 09/28/2015 Assessment [...] 06/28/2015 Assessment & Plan (03/06/2024 7:58 AM COLD STORAGE SUPERVISOR): Known right CCA and ICA occlusion. [...] Department Care Team Description 03/04/2024 Orders Only [facility] Ve[facility] [address] [place] [phone] Elijah Marie MD Right carotid artery occlusion (Primary Dx); Carotid stenosis, left 03/03/2024 1:45 PM COLD STORAGE SUPERVISOR Office Visit [facility] [address] [facility] [address] [place] [id number] Elijah Marie MD Carotid stenosis, left (Primary Dx); Primary hypertension; Mixed hyperlipidemia 03/03/2024 12:38 PM COLD STORAGE SUPERVISOR - 03/03/2024 11:59 PM COLD STORAGE SUPERVISOR Hospital Encounter [facility] 2 Vascular [facility] [address] [place] [address] Carotid stenosis, left Discharge Disposition: Discharge to [...] on file Legal Sex Female 9:42 AM COLD STORAGE SUPERVISOR Gender Identity Not on file Sexual Orientation Not on file Occupation Industry Job Start Date Job End Date retired Not on file Not on file Not on file Obstetrics History Last Filed Vital Signs Vital Sign Reading Time Taken Comments Blood Pressure 141/84 03/03/2024 1:40 PM COLD STORAGE SUPERVISOR Pulse 65 03/03/2024 1:40 PM COLD STORAGE SUPERVISOR Temperature 36.3 C (97.4 F) 05/19/2022 11:29 AM CDT Respiratory Rate 18 05/19/2022 11:29 AM CDT Oxygen Saturation 93% 05/19/2022 11:29 AM CDT Inhaled Oxygen Concentration - - Weight 83.9 kg (185 lb) 03/03/2024 1:40 PM COLD STORAGE SUPERVISOR Height 167.6 cm (5' 6 ) 03/03/2024 1:40 PM COLD STORAGE SUPERVISOR Body Mass Index 29.86 03/03/2024 1:40 PM COLD STORAGE SUPERVISOR Plan of Treatment Health Maintenance Due Date [...] 07/21/2030 07/21/2020 Medical Devices Implanted Type Area Petroleum Engineer Device Identifier Shelf Expiration Date Model / Serial / Lot [employer] Simplex P Full Dose Radiopaque Preblend Cement Bone Tobramycin 6197-9-010 - Sna - [id number] Implanted:Qty: 1 on 05/16/2021 by Mohan Novak MD at [facility] Bone Cement Left: Knee [employer] 08/04/2022 6197-9-010 / NA / [id number] [employer] Simplex P Full Dose Radiopaque Preblend Cement Bone Tobramycin 6197-9-010 - Sna - [id number] Implanted:Qty: 1 on 05/16/2021 by Mohan Novka MD at [facility] Bone Cement Left: Knee [employer] 08/04/2022 6197-9-010 / NA / [id number] [employer] [id number] Persona Natural Tibia Stem Knee Left 5d E Baseplate Tibial - Sna - [id number] Implanted:Qty: 1 on 05/16/2021 by Mohan Novak MD at [facility] Other - see comments Left: Knee [employer] [id number] 11/15/2030 [id number] / NA / [id number] [employer] Persona Cruciate Retain Cemented Knee Left 9 Narrow Component [id number] - Sna - [id number] Implanted:Qty: 1 on 05/16/2021 by Mohan Novak MD at [facility] Other - see comments Left: Knee [employer] [id number] 12/27/2030 [id number] / NA / [id number] [employer] Persona 10mm Ultracongruent Knee Left 4-11 E-F Insert Articular [id number] - Sna - [id number] Implanted:Qty: 1 on 05/16/2021 by Mohan Novak MD at [facility] Other - see comments Left: Knee [employer] [id number] 05/06/2027 [id number] / NA / [id number] Knee Right: Knee Description:Screws R femur, pins in L shoulder Procedures Procedure Name Priority Date/Time Associated Diagnosis Comments US CAROTIDS DUPLEX BILATERAL Schedule Routine, Read Routine (OP Routine) 03/03/2024 1:42 PM COLD STORAGE SUPERVISOR Carotid stenosis, left DEXA AXIAL SKELETON BONE DENSITY 1 OR MORE SITES Routine 07/30/2015 2:12 PM CDT from Last 3 Months or Most Recently Relevant to Health Maintenance Results * US Carotids Duplex Bilateral (03/03/2024 1:42 PM COLD STORAGE SUPERVISOR) Anatomical Region Laterality Modality Vascular Bilateral Ultrasound 03/03/2024 Narrative 03/04/2024 11:50 AM COLD STORAGE SUPERVISOR [employer] Job ID: [id number] [employer] Document ID: [id number] Dictated date/time: [id number] BILATERAL CAROTID DUPLEX REASON FOR EXAM Carotid [...] than 70% stenosis. Job ID/Internal Job ID: [id number] [facility] Angie Winter MD [facility] US PROCEDURES Final Res ult * Dexa [...] PM: Mansoor Sherman M.D. Mansoor Sherman M.D. NH:tn 03:04 PM 03:04 PM [facility] [EOD] Narrative 07/30/2015 3:07 PM CDT EXAMINATION: DXA Bone Density HISTORY: 70 year old postmenopausal female. Current Height: 66.5 inches Maximum Height: 68 inches Weight: 224 pounds RISK FACTORS: She has taken multivitamin and vitamin D. She does not regularly perform weightbearing exercise. She regularly consumes dairy products and caffeinated beverages. COMPARISON(S): None INDUSTRIAL AUTOMATION SPECIALIST/MODEL: [employer] Player (S/N [id number]) FINDINGS: AP lumbar spine L1-L4 Total BMD is 1.149 g/pe0A-nsulx is 0.9 Measured BMD is thought to be spuriously elevated due to multilevel arthropathy. Left Hip Total BMD is 0.828 g/tf4S-veedx is -0.9 Neck BMD is 0.627 g/gi8G-qqjmn is -2 Fracture risk assessment (FRAX): 10 [...] dairy products and caffeinated beverages. COMPARISON(S): None INDUSTRIAL AUTOMATION SPECIALIST/MODEL: [employer] Player (S/N [id number]) FINDINGS: AP lumbar spine L1-L4 Total BMD is 1.149 g/di8V-imcsn is 0.9 Measured BMD is thought to be spuriously elevated due to multilevel arthropathy. Left Hip Total BMD is 0.828 g/eo8J-paqld is -0.9 Neck BMD is 0.627 g/jm9P-vxfbi is -2 Fracture risk assessment (FRAX): 10 [...] PM: Mansoor Sherman M.D. Mansoor Sherman M.D. NH:tn 03:04 PM 03:04 PM BM [EOD] Koki Griggs MD IMG DXA PROCEDURES Final Resul t from Last 3 Months or Most Recently Relevant to Health Maintenance Insurance [facility] MEDICARE [facility] MEDICARE ADVANTAGE [employer] MEDICARE Advance Directives For more information, please contact: [phone] Documents on File Type Date Recorded Patient Recovery Specialist Expl anation ADVANCE DIRECTIVE 05/09/2022 2:00 PM POLST - Phys Order for PT Preferences ADVANCE DIRECTIVE 10/30/2012 12:00 AM [employer] CAR BUILDER FINANCIAL/MEDICAL ADVANCE DIRECTIVE 10/22/2012 12:00 AM SHAMAR HUDSON WILL * Full Code (Latest Code Status on File) Date Activated Date Inactivated Comments 04/27/2022 12:05 PM 05/08/2022 8:38 PM * Full Code Date Activated Date Inactivated Comments 04/25/2022 6:11 PM 04/27/2022 12:05 PM * Full Code Date Activated Date Inactivated Comments 05/16/2021 2:43 PM 05/21/2021 4:35 PM Care Teams Equipment Oiler Relationship Specialty Start Date End Date Koki Griggs MD [address] [address] PCP - General Family Medicine 10/28/18 Philip Ricci MD [address] [address] Consulting Physician Gastroenterology 04/28/22
--- OUTSIDE RECORDS SUMMARY | 2024-04-29 00:57 | XMS_ITS ---
Author Name Chris Mcgrath Sushil Address [address] [place] [address] Phone [phone] [facility] [facility] ice Address [address] [place] [address] Phone [phone] Care Team Providers Care Truck Shop Supervisor Name Role Phone Chris Mcgrath Unavailable [phone] Alexsander Donis Unavailable Functional Status No Results Mental Status No Results Allergies and Intolerances Name Onset Date Reaction Severity atorvastatin (Allergy) Sat May 21 13:41:00 EDT 2 022 oxybutynin (Allergy) Sat May 16 13:41:00 EDT 202 2 rosuvastatin (Allergy) Sat May 16 13:41:00 EDT 2 022 Aspartame (Allergy) Sat May 16 13:40:00 EDT 2021 penicillin (Allergy) Sat Apr 16 13:40:00 EDT 202 2 Sulfa (Sulfonamide Antibiotics) (Allergy) Sat Ap r 16 13:40:00 EDT 2021 Medications Medication Directions Start Date End Date oxyCODONE-acetaminophen 5 mg-325 mg tablet 1-2 tablets TABLET Oral PRN Every 4 Hours Pain Sat May 28 22:00:00 EDT 2021June 16 01:00:00 EDT 2021 levothyroxine 175 mcg tablet 175mcg TABLET Oral 1 Time Daily Hypothyroidism SunMay 24 17:00:00 EDT 2021June 16 01:00:00 EDT 2021 TUBErsoL 5 tub. unit/0.1 mL intradermal injection solution 0.1 ml VIAL (ML) Intradermal 1 Time Weekly for 2 Weeks SunMay 23 16:00:00 EDT 2021June 06 15:59:00 EDT 2021 TUBErsoL 5 tub. unit/0.1 mL intradermal injection solution Read Results VIAL (ML) Other 1 Time Weekly for 2 Weeks SunMay 23 17:00:00 EDT 2021June 06 16:59:00 EDT 2021 alendronate 70 mg tablet 1 tablet TABLET Oral 1 Time Weekly Osteoporosis SunJune 27 07:00:00 ED2021June 16 01:00:00 ED2021 aspirin 81 mg chewable tablet 81mg TABLET,CHEWABLE Oral 2 Times Daily for 3 Days DVT proph Sat May 21 08:00:00 ED2021May 24 07:59:00 EDT 2021 cholecalciferol (vitamin D3) 50 mcg (2,000 unit) capsule 2,000 Units CAPSULE Oral 1 Time Daily Vitamin D deficiency Sat May 21 13:00:00 ED2021June 16 01:00:00 ED2021 clopidogreL 75 mg tablet 75mg TABLET Ora l 1 Time Daily DVT proph SunMay 24 07:00:00 ED2021June 16 01:00:00 EDT 2021 diclofenac 1 % topical gel 1 application GEL (GRAM) Topical 4 Times Daily Areas of Pain; do not apply to surgical incision Sat May 21 14:00:00 2021June 16 01:00:00 ED2021 ezetimibe 10 mg tablet 10mg TABLET Oral 1 Time Daily HLD Sat May 21 14:00:00 2021June 16:00:00 ED2021 hydrOXYzine HCL 25 mg tablet 25mg TABLET Oral PRN Every 6 Hours Pain Sat May 21 14:00:00 2021June 16 01:00:00 ED2021 levETIRAcetam 500 mg tablet 500mg TABLET Oral 2 Times Daily Seizures Sat May 21 14:00:00 2021June 16 01:00:00 ED2021 levothyroxine 200 mcg tablet 200 mcg TABLET Oral 1 Time Daily Hypothyroidism Sat May 21 14:00:00 ED2021May 24 17:30:00 ED2021 Myrbetriq 25 mg tablet,extended release 25mg TABLET, EXTENDED RELEASE 24 HR Oral 1 Time Daily Overactive Bladder Sat May 21 14:00:00 2021June 16 01:00:00 ED2021 oxyCODONE-acetaminophen 5 mg-325 mg tablet 1-2 tablets TABLET Oral PRN Every 4 Hours for 7 Days Pain SunMay 21 14:00:00 EDT 2021May 28 13:59:00 EDT 2021 Senna with Docusate Sodium 8.6 mg-50 mg tablet 2 tablets TABLET Oral PRN 2 Times Daily Constipation SunMay 21 14:00:00 EDT 2021June 16 01:00:00 EDT 2021 venlafaxine ER 75 mg capsule,extended release 24 hr 75mg CAPSULE, EXT RELEASE 24 HR Oral 1 Time Daily Depression [facility] May 21 14:00:00 EDT 2021June 16 01:00:00 EDT 2021 Problems Active Concerns * Hemiplegia and hemiparesis following cerebral infarction affecting left non- dominant side* Code: * Start Date: SunMay 21 00:00:00 EDT 2021 * End Date: * Text: * Stenosis of peripheral vascular stent, subsequent encounter* Code: * Start Date: [facility] May 21 00:00:00 EDT 2021 * End Date: * Text: * Occlusion and stenosis of bilateral carotid arteries* Code: * Start Date: SunMay 21 00:00:00 EDT 2021 * End Date: * Text: * Diaphragmatic hernia without obstruction or gangrene* Code: * Start Date: [facility] May 21 00:00:00 EDT 2021 * End Date: * Text: * Unspecified osteoarthritis, unspecified site* Code: * Start Date: SunMay 21 00:00:00 EDT 2021 * End Date: * Text: * Hypothyroidism, unspecified* Code: * Start Date: [facility] May 21 00:00:00 EDT 2021 * End Date: * Text: * Aftercare following joint replacement surgery* Code: * Start Date: SunMay 21 00:00:00 EDT 2021 * End Date: * Text: * Presence of right artificial knee joint* Code: * Start Date: SunMay 21 00:00:00 EDT 2021 * End Date: * Text: * Epilepsy, unspecified, not intractable, without status epilepticus* Code: * Start Date: SunMay 21 00:00:00 EDT 2021 * End Date: * Text: * Rheumatic tricuspid insufficiency* Code: * Start Date: SunMay 21 00:00:00 EDT 2021 * End Date: * Text: * Obesity, unspecified* Code: * Start Date: SunMay 21 00:00:00 EDT 2021 * End Date: * Text: * Body mass index [BMI] 32.0-32.9, adult* Code: * Start Date: SunMay 21 00:00:00 EDT 2021 * End Date: * Text: * Personal history of nicotine dependence* Code: * Start Date: SunMay 21 00:00:00 EDT 2021 * End Date: * Text: * Diverticulosis of large intestine without perforation or abscess without bleeding* Code: * Start Date: SunMay 21 00:00:00 EDT 2021 * End Date: * Text: * Overactive bladder* Code: * Start Date: SunMay 21 00:00:00 EDT 2021 * End Date: * Text: * Major depressive disorder, single episode, unspecified* Code: * Start Date: SunMay 21 00:00:00 EDT 2021 * End Date: * Text: * Hypertensive heart disease with heart failure* Code: * Start Date: SunMay 21 00:00:00 EDT 2021 * End Date: * Text: * Chronic diastolic (congestive) heart failure* Code: * Start Date: SunMay 21 00:00:00 EDT 2021 * End Date: * Text: * Mixed hyperlipidemia* Code: * Start Date: SunMay 21 00:00:00 EDT 2021 * End Date: * Text: * Slow transit constipation* Code: * Start Date: SunMay 21 00:00:00 EDT 2021 * End Date: * Text: * Drug induced constipation* Code: * Start Date: SunMay 21 00:00:00 EDT 2021 * End Date: * Text: * Adverse effect of other opioids, subsequent encounter* Code: * Start Date: SunMay 21 00:00:00 EDT 2021 * End Date: * Text: * Unspecified urinary incontinence* Code: * Start Date: SunMay 21 00:00:00 EDT 2021 * End Date: * Text: * termite control servicer (current) use of antithrombotics/antiplatelets* Code: * Start Date: SunMay 21 00:00:00 EDT 2021 * End Date: * Text: * half-way (current) use of aspirin* Code: * Start Date: SunMay 21 00:00:00 EDT 2021 * End Date: * Text: * Vitamin D deficiency, unspecified* Code: * Start Date: SunMay 21 00:00:00 EDT 2021 * End Date: * Text: Reason for Referral Past Medical History
--- OUTSIDE RECORDS SUMMARY | 2024-04-29 00:57 | XMS_ITS | Encounter Summary ---
Author Organization [facility] Address [address] [place] [address] Care Team Providers Care Structural Draftsman Name Role Phone Koki Griggs MD Primary Care Provider [phone] Encounter Details Date Type Department Care Team (Late st Contact Info) Description 12/21/2019 Prep for Procedure [facility] [place], [place] [address] Ned Saldaña MD [address] [address] Social History Tobacco Use Types Packs/Day Years [...] COVID-19? No / Unsure 12/24/2019 9:53 AM CURING MACHINE OPERATOR documented as of this encounter Functional Status * RETIRED Are you deaf or do you have serious difficulty hearing Answer Date of Assessment Author Status No 03/18/2019 9:20 PM CURING MACHINE OPERATOR Activ e * RETIRED Are you blind or do you have serious difficulty seeing, even when wearing glasses? Answer Date of Assessment Author Status No 03/18/2019 9:20 PM CURING MACHINE OPERATOR Activ e * Do you have serious [...] PRE-SURGICAL/PRE-PROCEDURE CORONAVIRUS (COVID 19) (12/21/2019 10:59 AM CURING MACHINE OPERATOR) CORONAVIRUS SARS COV 2 PCR (RESP) NOT DETECTED NOT DETECTED 12/22/2019 3:11 PM CURING MACHINE OPERATOR [employer] [facility] Comment: A Not Detected (negative) test [...] providers and patients using the following websites: https://www.[employer]/home/Covid-19/HCP/QuestIVD/fact- sheet.html https://www.[employer]/home/Covid-19/Patients/ Quest[employer]/fact-sheet.html This test has been authorized by the FDA under an Emergency Use Authorization (EUA) for use by authorized laboratories. Due to the current public health emergency, [facility] is receiving a high volume of samples [...] about COVID-19 can be found at the [employer] website: www.[employer]/Covid19. Test performed at [facility] [address] [address] Director: NEHAL COHEN DO,MPH FIRST TEST UNKNOWN 12/21/2019 12:33 PM [facility] EMPLOYED IN HEALTHCARE NO 12/21/2019 12:33 PM [facility] SYMPTOMATIC DEFINED BY CDC NO 12/21/2019 12:33 PM [facility] DATE OF SYMPTOM ONSET NO 12/21/2019 1:51 PM [facility] HOSPITALIZATION STATUS NO 12/21/2019 12:33 PM [facility] PATIENT IN ICU NO 12/21/2019 12:33 PM CURING MACHINE OPERATOR [facility] NO 12/21/2019 12:33 PM CURING MACHINE OPERATOR [facility] NOT 12/21/2019 1:51 PM CURING MACHINE OPERATOR [facility] PATIENT'S RACE WHITE OR 12/21/2019 12:33 PM CURING MACHINE OPERATOR [facility] ETHNICITY NONHISPANIC 12/21/2019 12:33 PM CURING MACHINE OPERATOR [facility] SOURCE (QST) NASOPHARYNGEAL SWAB 12/21/2019 12:33 PM CURING MACHINE OPERATOR [facility] NASOPHARYNGEAL SWAB / Unknown 12/21/2019 10:59 AM CURING MACHINE OPERATOR us Ned Saldaña MD MICROBIOLOGY - GENERAL SHAHLA THOMPSON Final Result [facility] [address] [place] [address], [employer] [facility] [id number] [place] [address], documented in this encounter Visit Diagnoses Diagnosis History of colon polyps- Primary Personal history of colonic polyps documented in this encounter Additional Health Concerns Infection Onset Date Last Indicated Resolved Time COVID-19 Rule Out 12/21/2019 12/21/2019 12/22/2019 3:11 PM CURING MACHINE OPERATOR COVID-19 Rule Out 02/27/2020 02/27/2020 02/27/2020 2:26 PM CURING MACHINE OPERATOR documented as of this encounter Care Teams Structural Draftsman Relationship Specialty Start Date End Date Koki Griggs MD [address] [address] PCP - General 09/28/15 documented as of this encounter
--- OUTSIDE RECORDS SUMMARY | 2024-04-29 00:57 | XMS_ITS | Referral Summary ---
Author Organization [facility] Address [address] [place] [address] Care Team Providers Care Manager Corporate Marketing Name Role Phone Koki Griggs MD Primary Care Provider [phone] Philip Ricci MD Unavailable Encounters Date Type Department Care Team Description 03/04/2024 Orders Only [facility] [address] [place] [address] [address] [place] [address] Elijah Marie MD Right carotid artery occlusion (Primary Dx); Carotid stenosis, left 03/03/2024 12:38 PM IT INFRASTRUCTURE ENGINEER - 03/03/2024 11:59 PM IT INFRASTRUCTURE ENGINEER Hospital Encounter [facility] [address] [place] [address] [address] [place] [address] Carotid stenosis, left Discharge Disposition: Discharge to home or self care 03/03/2024 1:45 PM IT INFRASTRUCTURE ENGINEER Office Visit [facility] [address] [place] [address] [address] [place] [phone] Elijah Marie MD Carotid stenosis, left (Primary [...] 09/28/2015 Assessment & Plan (03/06/2024 7:59 AM IT INFRASTRUCTURE ENGINEER): Stable continue Lipitor. Hypothyroidism 09/28/2015 Assessment & [...] 06/28/2015 Assessment & Plan (03/06/2024 7:58 AM IT INFRASTRUCTURE ENGINEER): Known right CCA and ICA occlusion. Left [...] on file Legal Sex Female 9:42 AM IT INFRASTRUCTURE ENGINEER Gender Identity Not on file Sexual Orientation Not on file Occupation Industry Job Start Date Job End Date retired Not on file Not on file Not on file Last Filed Vital Signs Vital Sign Reading Time Taken Comments Blood Pressure 141/84 03/03/2024 1:40 PM IT INFRASTRUCTURE ENGINEER Pulse 65 03/03/2024 1:40 PM IT INFRASTRUCTURE ENGINEER Temperature 36.3 C (97.4 F) 05/19/2022 11:29 AM CDT Respiratory Rate 18 05/19/2022 11:29 AM CDT Oxygen Saturation 93% 05/19/2022 11:29 AM CDT Inhaled Oxygen Concentration - - Weight 83.9 kg (185 lb) 03/03/2024 1:40 PM IT INFRASTRUCTURE ENGINEER Height 167.6 cm (5' 6 ) 03/03/2024 1:40 PM IT INFRASTRUCTURE ENGINEER Body Mass Index 29.86 03/03/2024 1:40 PM IT INFRASTRUCTURE ENGINEER Plan of Treatment Not on file Medical Devices Implanted Type Area Trailer Rental Clerk Device Identifier Shelf Expiration Date Model / Serial / Lot [employer] Simplex P Full Dose Radiopaque Preblend Cement Bone Tobramycin 6197-9-010 - Sna - [id number] Implanted:Qty: 1 on 05/16/2021 by Mohan Novak MD at [facility] Bone Cement Left: Knee [employer] 08/04/2022 6197-9-010 / NA / [id number] [employer] Simplex P Full Dose Radiopaque Preblend Cement Bone Tobramycin 6197-9-010 - Sna - [id number] Implanted:Qty: 1 on 05/16/2021 by Mohan Novak MD at [facility] Bone Cement Left: Knee [employer] 08/04/2022 6197-9-010 / NA / [id number] [employer] [id number] Persona Natural Tibia Stem Knee Left 5d E Baseplate Tibial - Sna - [id number] Implanted:Qty: 1 on 05/16/2021 by Mohan Novak MD at [facility] Other - see comments Left: Knee [employer] [id number] 11/15/2030 [id number] / NA / [id number] [employer] Persona Cruciate Retain Cemented Knee Left 9 Narrow Component [id number] - Sna - [id number] Implanted:Qty: 1 on 05/16/2021 by Mohan Novak MD at [facility] Other - see comments Left: Knee [employer] [id number] 12/27/2030 [id number] / NA / [id number] [employer] Persona 10mm Ultracongruent Knee Left 4-11 E-F Insert Articular [id number] - Sna - [id number] Implanted:Qty: 1 on 05/16/2021 by Mohan Novak MD at [facility] Other - see comments Left: Knee [employer] [id number] 05/06/2027 [id number] / NA / [id number] Knee Right: Knee Description:Screws R femur, pins in L shoulder Procedures Procedure Name Priority Date/Time Associated Diagnosis Comments US CAROTIDS DUPLEX BILATERAL Schedule Routine, Read Routine (OP Routine) 03/03/2024 1:42 PM IT INFRASTRUCTURE ENGINEER Carotid stenosis, left DEXA AXIAL SKELETON BONE DENSITY 1 OR MORE SITES Routine 07/30/2015 2:12 PM CDT from Last 3 Months or Most Recently Relevant to Health Maintenance Results * US Carotids Duplex Bilateral (03/03/2024 1:42 PM IT INFRASTRUCTURE ENGINEER) Anatomical Region Laterality Modality Vascular Bilateral Ultrasound 03/03/2024 Narrative 03/04/2024 11:50 AM IT INFRASTRUCTURE ENGINEER [employer] Job ID: [id number] [employer] Document ID: [id number] Dictated date/time: [id number] BILATERAL CAROTID DUPLEX REASON FOR EXAM Carotid [...] than 70% stenosis. Job ID/Internal Job ID: [id number] us Christian Winter MD IMG US PROCEDURES [...] dairy products and caffeinated beverages. COMPARISON(S): None FOUR SLIDE MACHINE OPERATOR/MODEL: [employer] (S/N 63177) FINDINGS: AP lumbar spine L1-L4 Total BMD is 1.149 g/jc0Y-wvtej is 0.9 Measured BMD is thought to be spuriously elevated due to multilevel arthropathy. Left Hip Total BMD is 0.828 g/sj6V-opeor is -0.9 Neck BMD is 0.627 g/ql2N-uxlvx is -2 Fracture risk assessment (FRAX): 10 [...] dairy products and caffeinated beverages. COMPARISON(S): None FOUR SLIDE MACHINE OPERATOR/MODEL: [employer] (S/N 53645) FINDINGS: AP lumbar spine L1-L4 Total BMD is 1.149 g/nj2N-magix is 0.9 Measured BMD is thought to be spuriously elevated due to multilevel arthropathy. Left Hip Total BMD is 0.828 g/fu6H-wrtmg is -0.9 Neck BMD is 0.627 g/qq7Q-uzvjx is -2 Fracture risk assessment (FRAX): 10 [...] PM: Mansoor Sherman M.D. Mansoor Sherman M.D. [place]:ks 03:04 PM 03:04 PM [facility] [EOD] Koki Griggs MD IMG DXA PROCEDURES Final Resul t from Last 3 Months or Most Recently Relevant to Health Maintenance Insurance [employer] MEDICARE [facility] MEDICARE Address: [id number] [place] [phone] [facility] MEDICARE ADVANTAGE [facility] MEDICARE [facility] MEDIC[facility] Address: [id number] [place] [phone] Advance Directives For more information, please contact: [phone] Documents on File Type Date Recorded Patient Pig Iron Loader Expl anation ADVANCE DIRECTIVE 05/09/2022 2:00 PM POLST - Phys Order for PT Preferences ADVANCE DIRECTIVE 10/30/2012 12:00 AM CLINT R OF AUDIT CLERKS SUPERVISOR FINANCIAL/MEDICAL ADVANCE DIRECTIVE 10/22/2012 12:00 AM SHAMAR NAVARRO * Full Code (Latest Code Status on File) Date Activated Date Inactivated Comments 04/27/2022 12:05 PM 05/08/2022 8:38 PM * Full Code Date Activated Date Inactivated Comments 04/25/2022 6:11 PM 04/27/2022 12:05 PM * Full Code Date Activated Date Inactivated Comments 05/16/2021 2:43 PM 05/21/2021 4:35 PM Care Teams Manager Corporate Marketing Relationship Specialty Start Date End Date Koki Griggs MD [address] [address] PCP - General Family Medicine 10/28/18 Philip Ricci MD [address] [address] Consulting Physician Gastroenterology 04/28/22
--- OUTSIDE RECORDS SUMMARY | 2024-04-29 00:57 | XMS_ITS | Clinical Summary ---
Author Organization [facility] Address [address] [place] [address] Care Team Providers Care Asset Availability Leader Name Role Phone Koki Griggs MD Primary Care Provider [phone] Allergies Active Allergy Reactions Criticality Noted Date [...] 05/11/2021 Hypertension 05/11/2021 Closed left hip fracture ([facility]) 02/24 Obesity (BMI 30-39.9) 09/04/2019 Overview (02/25/2020): [...] fracture of medial wall of right acetabulum ([facility]) 03/19/2019 Hip fracture ([facility]) 03/18/2019 Bilateral carotid artery stenosis 09/28/2015 CVA (cerebral vascular accident) ([facility]/ C) 09/28/2015 Overview (03/18/2019): Overview: Back in 1997. Left hemiplegia but still able to walk without assistance. Back in 1997. Left hemiplegia but still able to walk without assistance. HLD (hyperlipidemia) 09/28/2015 Hypothyroidism 09/28/2015 Tonic-clonic seizure disorder ([facility]) 09/28/2015 Contracture of hand joint 09/06/2011 Resolved Problems Problem Noted Date Diagnosed Date Resolved Date Abdominal pain 05/02/2020 05/04/2020 Encounters Date Type Department Care Team Description 04/18/2024 12:21 PM CDT - 04/18/2024 6:46 PM CDT Emergency [facility] [place] [address] Raúl Fagan DO Hematuria Discharge Disposition: Home or Self Care (Routine Discharge) 04/18/2024 Travel from Last 3 Months Immunizations Name Administration Dates Next Due Fluzone High Dose - >Age 65 (Prefilled Syringe) 01/14/2019,01/13/2019,11/08/2017, 017,11/10/2015,11/29/2014 Influenza (Generic) 10/23/2013,12/11/2012,2011 Influenza Adult (Generic) 10/23/2013,12/11/2012, 11/29/2011 Zoster (Zostavax) [address] Unt/0.65Ml 07/04/2013 Family History Medical History Relation [...] Lewis RN Medical Devices Implanted Type Area Oracle Hrms Developer Device Identifier Shelf Expiration Date Model / [...] BONE DENSITY/DEXA Routine 02/04/2020 2:5 9 PM DELIVERY NURSE Asymptomatic menopausal state from Last 3 Months [...] 3:57 PM Narrative 04/18/2024 4:09 PM CDT [address] [address] EXAM: CT ABD+PEL WWO CON DATE: 04/18/2024 [...] Procedure Note Shashank Schumacher MD - 04/18/[address] [address] EXAM: CT ABD+PEL WWO CON DATE: 04/18/2024 [...] URINE STRAIGHT CATH 04/18/2024 12:[address] [facility] COLOR (U) LIGHT ORANGE 04/18/2024 1:[address] [facility] TRANSPARENCY EXTREMELY TURBID 04/18/2024 1:[address] [facility] SPECIFIC GRAVITY (U) 1.013 1.001 - 1.030 04/18/2024 1:[address] [facility] U PH 6.5 5.0 - 9.0 04/18/2024 1:[address] [facility] LEUKOCYTES (U) 500(A) NEGATIVE 04/18/2024 1:[address] [facility] NITRITES NEGATIVE NEGATIVE 04/18/2024 1:[address] [facility] PROTEIN RANDOM (U) 50(H) <30 MG/DL 04/18/2024 1:[address] [facility] GLUCOSE (U) NORMAL NORMAL MG/DL 04/18/2024 1:[address] [facility] KETONES MG/DL (U) NEGATIVE NEGATIVE MG/DL 04/18/2024 1:[address] [facility] UROBILINOGEN NORMAL NORMAL MG/DL 04/18/2024 1:[address] [facility] BILIRUBIN (U) NEGATIVE NEGATIVE MG/DL 04/18/2024 1:[address] [facility] BLOOD (U) 3+(A) NEGATIVE 04/18/2024 1:[address] [facility] WBC/HPF >100(H) <6 /HPF 04/18/2024 1:[address] [facility] WBC CLUMPS PRESENT 04/18/2024 1:[address] [facility] RBC/HPF >100(H) <6 /HPF 04/18/2024 1:[address] [facility] SQUAMOUS EPITHELIALS FEW /HPF 04/18/2024 1:[address] [facility] URINE, STRAIGHT CATH 04/18/2024 1:00 PM CDT Niesha Lamar DO URINE ORDERABLES Final Result Performing Organization Address City/[facility]/ZIP Co de Phone Number [facility] [address] [place] [address], [place] [phone] * PARTIAL THROMBOPLASTIN TIME,PTT (04/18/2024 1:00 PM CDT) PTT 35.8 25.1 - 36.5 SEC 04/18/2024 1:[address] [facility] 04/18/2024 1:00 PM CDT us Raúl Fagan DO LABORATORY Final Result Performing Organization Address City/[facility]/ZIP Co de Phone Number [facility] [address] [place] [address], [place] [phone] * PROTIME/INR, VENOUS (04/18/2024 1:00 PM CDT) PROTIME 10.6 10.2 - 12.9 SEC 04/18/2024 1:[address] [facility] INR 0.9 04/18/2024 1:[address] [facility] Comment: Recommended INR Therapeutic Goals: 2.0-3.0 Routine Therapy 2.5-3.5 Mechanical Prosthetic Valves (High Risk) 04/18/2024 1:00 PM CDT Raúl Fagan DO LABORATORY Final Result [facility] [address] [place] [address], * (ABNORMAL) COMPREHENSIVE METABOLIC PANEL (04/18/2024 1:00 PM CDT) [facility] GLUCOSE 94 70 - 99 MG/DL 04/18/2024 1:[address] [facility] BUN 13 7 - 18 MG/DL 04/18/2024 1:[address] [facility] CREATININE S/P/B 0.68 0.55 - 1.02 MG/DL 04/18/2024 1:[address] [facility] SODIUM S/P/B 141 136 - 145 MMOL/L 04/18/2024 1:[address] [facility] POTASSIUM S/P/B 4.1 3.5 - 5.1 MMOL/L 04/18/2024 1:[address] [facility] CHLORIDE S/P/B 109 97 - 115 MMOL/L 04/18/2024 1:[address] [facility] CO2 27.8 21 - 32 MMOL/L 04/18/2024 1:[address] [facility] CALCIUM S/P/B 9.1 8.5 - 10.1 MG/DL 04/18/2024 1:[address] [facility] BILIRUBIN TOTAL S/P/B 0.7 0.2 - 1.2 MG/DL 04/18/2024 1:[address] [facility] Comment: THIS ASSAY IS NOT RECOMMENDED FOR PATIENTS UNDERGOING TREATMENT WITH ELTROMBOPAG DUE TO THE POTENTIAL FOR FALSELY ELEVATED RESULTS. TOTAL PROTEIN S/P/B 6.8 6.4 - 8.2 G/DL 04/18/2024 1:[address] [facility] ALBUMIN S/P/B 3.1(L) 3.4 - 5.0 G/DL 04/18/2024 1:[address] [facility] AST 14(L) 15 - 37 U/L 04/18/2024 1:[address] [facility] ALT 17 14 - 55 U/L 04/18/2024 1:[address] [facility] ALKALINE PHOSPHATASE S/P/B 139(H) 50 - 136 U/L 04/18/2024 1:[address] [facility] ANION GAP 4.2 2 - 10 MMOL/L 04/18/2024 1:[address] [facility] BUN CREATININE RATIO 19.2 6 - 26 04/18/2024 1:[address] [facility] A/G RATIO 0.8(L) 1.0 - 2.0 RATIO 04/18/2024 1:[address] [facility] GFR ESTIMATE 87(L) >90 ML/MIN/1.7 3 M2 04/18/2024 1:[address] [facility] Comment: NOTE: eGFR is not calculated for patients <18 years of age or gender unknown. This is an estimated GFR calculation using the new CKD EPI creatinine equation without race and so does not require a correction factor for race. This estimated GFR should not be used for calculating drug doses. 04/18/2024 1:00 PM CDT Niesha Lamar DO LABORATORY Final Result [facility] [address] [place] [address], [place] [phone] * (ABNORMAL) CBC W/DIFF AUTOMATED (04/18/2024 1:00 PM CDT) [facility] WBC 7.97 4.5 - 11.0 x10'3/uL 04/18/2024 1:[address] [facility] RBC 4.14(L) 4.20 - 5.40 x10'6/uL 04/18/2024 1:[address] [facility] HGB 13.1 12.0 - 16.0 G/DL 04/18/2024 1:[address] [facility] HCT 39.7 38.0 - 48.0 % 04/18/2024 1:[address] [facility] MCV 95.9 81.0 - 99.0 FL 04/18/2024 1:[address] [facility] MCH 31.6(H) 27.0 - 31.0 PG 04/18/2024 1:[address] [facility] MCHC 33.0 32.0 - 36.0 G/DL 04/18/2024 1:[address] [facility] RDW 12.7 11.5 - 14.5 % 04/18/2024 1:[address] [facility] PLT 207 130 - 400 x10'3/uL 04/18/2024 1:[address] [facility] MPV 9.0(L) 9.3 - 12.2 FL 04/18/2024 1:[address] [facility] DIFFERENTIAL TYPE AUTOMATED DIFFERENTIAL 04/18/2024 1:[address] [facility] NEUTROPHILS % 69.5 % 04/18/2024 1:[address] [facility] LYMPHOCYTES % 21.3 % 04/18/2024 1:[address] [facility] MONOCYTES % 5.9 % 04/18/2024 1:[address] [facility] EOSINOPHILS 2.6 % 04/18/2024 1:[address] [facility] BASOPHILS 0.3 % 04/18/2024 1:[address] [facility] IMMATURE GRANS % 0.4 % 04/19/19 1:[address] [facility] ABS. NEUTROPHILS 5.54 1.80 - 7.70 x10'3/uL 04/18/2024 1:[address] [facility] ABS. LYMPHOCYTES 1.70 1.00 - 4.80 x10'3/uL 04/18/2024 1:[address] [facility] ABS. MONOCYTES 0.47 0.24 - 0.86 x10'3/uL 04/18/2024 1:[address] [facility] ABS. EOSINOPHILS 0.21 0.04 - 0.36 x10'3/uL 04/18/2024 1:[address] [facility] ABS. BASOPHILS 0.02 0.01 - 0.08 x10'3/uL 04/18/2024 1:[address] [facility] ABS. IMMATURE GRANULOCYTES 0.03 0.00 - 0.49 x10'3/uL 04/18/2024 1:[address] [facility] 04/18/2024 1:00 PM CDT us Niesha Lamar DO LABORATORY Final Result [facility] [address] [place] [address], * BONE DENSITY/DEXA (02/04/2020 2:59 PM DELIVERY NURSE) Anatomical Region Laterality Modality Bone Mammography 02/05/2020 10:4 3 AM DELIVERY NURSE Impressions 02/05/2020 10:47 AM DELIVERY NURSE IMPRESSION: Lumbar spine: Lowest T score is -0.8 at L1. Within normal limits. Hips: Lowest T score is -2.5 at the left femoral neck. Severe loss of bone mineral density indicating osteoporosis. Frax: 10 year Probability of major osteoporotic fracture: 14%. 10 year Probability of hip fracture: 4.2%. Interpreted By: Aurelio Acuna MD, 02/05/2020 10:43 AM Narrative 02/05/2020 10:47 AM DELIVERY NURSE Examination: Bone Density Axial Exam Date/Time: 02/04/2020 [...] Acuna MD, 02/05/2020 10:43 AM Rita Moll PUNCH PRESS FEEDER DEXA Final Result from Last 3 Months or Most Recently Relevant to Health Maintenance Insurance [employer] Advance Directives Documents on File Type Date Recorded Patient Manager Technical Services Expl anation Advance Directives and Living Will [...] 9:18 PM 03/20/2019 5:58 PM Care Teams Asset Availability Leader Relationship Specialty Start Date End Date Koki Griggs MD [address] [facility] [address] [place] [address] PCP - General 09/28/15
--- NOTE | 2024-04-29 09:18 | WPDHPUPDATE1 ---
History and Physical Update Update Date/Time: 04/29/24 09:18 History and Physical has been reviewed, including an updated exam of the patient. There are NO changes in the patient's condition. Risks, benefits, and alternatives have been discussed and questions answered. Patient agrees to proceed with procedure.
--- NOTE | 2024-04-29 12:00 | P.PNAN_ITS ---
Anes - Initial Pre Proc Eval Procedure: Operation Date: 04/29/24 13:30 Proposed Procedures p Cystoscopy, Possible Transurethral Resection Bladder Tumor - Juma Duran MD Date/Time: 04/29/24 12:00 Surgeon: Juma Duran MD Pre Op Diagnosis: gross hematuria Patient Data Age: 79 Gender: F Height: 1.68 m Weight: 89 kg Allergies Allergy/AdvReac Type Severity Reaction Status Date / Time aspartame Allergy Hives Verified 04/29/24 11:39 Penicillins Allergy RASH Verified 04/29/24 11:39 Sulfa (Sulfonamide Allergy RASH Verified 04/29/24 11:39 Antibiotics) adhesive tape AdvReac REDNESS Verified 04/29/24 11:39 AND SKIN IRRITATION COBAN AdvReac Rash Uncoded 04/29/24 11:39 Home Medications ?Medication ?Instructions ?Recorded ?Confirmed ?Type aspirin 81 mg tablet,delayed 81 mg PO DAILY 04/21/24 04/21/24 History release (Adult Low Dose Aspirin) atorvastatin 40 mg tablet 40 mg PO DAILY 04/21/24 04/21/24 History ciprofloxacin HCl 500 mg tablet 500 mg PO Q12H 04/21/24 04/21/24 History (Cipro) clopidogrel 75 mg tablet 75 mg PO DAILY 04/21/24 04/21/24 History ezetimibe 10 mg tablet 10 mg PO DAILY 04/21/24 04/21/24 History levetiracetam 500 mg tablet 500 mg PO Q12H 04/21/24 04/21/24 History levothyroxine 175 mcg tablet 175 mcg PO QAM 04/21/24 04/21/24 History trazodone 50 mg tablet 50 mg PO HS PRN insomnia 04/21/24 04/21/24 History venlafaxine 75 mg capsule,extended 75 mg PO QAM 04/21/24 04/21/24 History release 24 hr Patient hx anesthesia problems: none Family hx anesthesia problems: none Results Review: All pre-operative results and documents have been reviewed as part of the pre- operative evaluation. [facility] Social History Social History Smoking packs per day: 2 Smoking cigarettes per day: 40.0 Years smoked: 20 Smoking pack-years: 40.00 Smoking status: Former smoker Tobacco type: cigarettes Smoking end date: 08/05/97 Living arrangements: assisted living Additional living arrangements comments: W/ HUSB Spiritual care concerns: No Anes - Eval Final PreProcedure Day of Procedure 04/29/24 12:00 Patient weight: obese Lungs: normal air movement Airway: Mallampati scale class II and special considerations (Missing L lower teeth. ) Neurological: alert and oriented Last oral intake: >/= 8 hours ASA classification: III Emergent: no Anesthetic plan: proceed Anesthesia type and monitoring: general LMA and standard monitoring Results Review: All pre-operative results and documents have been reviewed as part of the pre- operative evaluation. Hyperlipidemia, ex smoker, quit 1997, 40 pack years, carotid disease, s/p CEA R 1997 w immediate occlusion and CVA, no residual, pt w less than 70% L disease, on plavix only, held for this surgery. Full discussion w pt and her daughter re R/B/A of GA and sx. They understand and wish to proceed. Informed Consent: The patient's anesthetic plan and its attendant risks and benefits were discussed with the patient/family/POA. Questions were solicited and answers provided to the satisfaction of the patient/family/POA.
[2024-04-29] MEDS: ceFAZolin 2 GM/D5W 50 ML 2 GM/50 ML BAG IVPB (12:23)
[2024-04-29] MEDS: LACTATED RINGERS 1,000 ML 30 ML IV CONT ×2 (12:24→13:21)
[2024-04-29] MEDS: LIDOCAINE 2% GEL UROJET 10 ML PKG MUCOUS MEM (13:03)
--- NOTE | 2024-04-29 13:12 | W.PM.PROC2 ---
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 Once anesthesia was obtained she was placed in dorsal lithotomy position and prepped draped usual sterile fashion. Twenty-two [employer] scope was inserted the bladder. It was somewhat difficult to see due to the oozing from a mass which extended from the bladder neck at the 7 o'clock position all the way around to the 2 o'clock position extending anterior wall as well as lateral wall. Twenty-four [employer] resectoscope sh. Final recommendation made pending e urethra. A [address] was placed with 20 cc in the balloon connected to continuous bladder irrigation. She has taken recovery stable condition. Further recommendation will be made pending her pathology and interval course. Estimated Blood Loss 10 Drains Yes Packing No Pathology Yes Complications No immediate complications Condition Stable Disposition PACU
--- NOTE | 2024-04-29 15:45 | ADMGEN ---
This patient, Hortencia Smith, was admitted to 2 Medical Room 243-. Patient/family oriented to hospital policies and general routines including ID bracelet, bed and alarms, visiting hours, pain management, procedures, bathroom and other care routines, personal items, smoking policy, room service/diet, and visiting hours. Information on how to activate the Rapid Response Team has been discussed. Patient/Family are encouraged to report perceived risks to care and to ask questions if they do not understand what they are told or what they should do.
[2024-04-29] MEDS: DOCUSATE SODIUM 100 MG CAPSULE PO (17:31)
[2024-04-29] MEDS: CEPHALEXIN 500 MG CAPSULE PO ×2 (17:31→22:09)
[2024-04-29] MEDS: ceFAZolin 1 GM/NS 50 ML 1 GM/50 ML BAG IVPB (22:08)
[2024-04-29] MEDS: HYDROcodone/acetaminophen (*CRX) 5-325 MG TABLET 1 TAB PO (22:20)
[2024-04-30] VITALS (8 sets, daily range): BP systolic 103–121; BP diastolic 47–87; PULSE 69–81; RESP 16–18; TEMP 36.3–37.2; O2SAT 94–98
[2024-04-30] MEDS: ceFAZolin 1 GM/NS 50 ML 1 GM/50 ML BAG IVPB (04:33)
[2024-04-30 05:22] LABS: Anion Gap 7 mmol/L (4-12); Blood Urea Nitrogen 10 mg/dL (7-17); Calcium 8.5 mg/dL (8.4-10.2); Carbon Dioxide 24 mmol/L (22-30); Chloride 107 mmol/L (98-107); Estimated CRCL calculation 67 ml/min; Estimated Glomerular Filt Rate > 60; Glucose 96 mg/dL (65-110); Potassium 4.3 mmol/L (3.4-5.0); Sodium 138 mmol/L (137-145)
[2024-04-30 05:26] LABS: Hematocrit 37.5 % (37.0-47.0); Hemoglobin 12.3 g/dL (12.0-15.0)
[2024-04-30] MEDS: HYDROcodone/acetaminophen (*CRX) 5-325 MG TABLET 1 TAB PO ×2 (06:12→21:08)
--- NOTE | 2024-04-30 07:41 | WPDUROPN2 ---
Progress Note: A&P Assessment and Plan (1) Bladder tumor: Code(s): D49.4 - Neoplasm of unspecified behavior of bladder Status: Acute Assessment and Plan: Postoperative day 1. TURBT. Overall doing well. Will keep CBI at a minimal rate this morning. A to work on placement in a facility that will lower to have a Kathleen catheter. Out of bed to chair today Subjective Subjective Date/Time Seen: 04/30/24 07:41 Interval history: Postop day 1. From TURBT. Overall doing well. Appears to have had some mild bladder spasms. Urine is pink with slight CBI going Review of Systems Review of Systems: All systems reviewed & are unremarkable except as noted in HPI and below Exam Const: General: cooperative and comfortable Resp: Effort & Inspection: normal respiratory effort Cardio: Rate: regular rate Rhythm: regular rhythm Urinary Catheter: Urinary Catheter: patent and draining and urine pink Objective Data Vital Signs Vital Signs: Vital Signs - 24 hr 04/29/24 11:30 04/29/24 13:21 04/29/24 13:35 Temperature 36.4 C Pulse Rate 85 84 83 Respiratory Rate 16 16 12 Blood Pressure 135/66 132/57 L 120/75 Pulse Oximetry 99 100 95 Oxygen Delivery Room Air Simple Face Mask Room Air Oxygen Flow Rate 6 04/29/24 13:50 04/29/24 14:05 04/29/24 14:20 Temperature Pulse Rate 81 80 81 Respiratory Rate 12 12 12 Blood Pressure 120/70 117/72 129/76 Pulse Oximetry 96 97 91 Oxygen Delivery Room Air Room Air Room Air Oxygen Flow Rate 04/29/24 14:35 04/29/24 14:50 04/29/24 15:05 Temperature Pulse Rate 80 80 83 Respiratory Rate 12 14 14 Blood Pressure 126/77 110/75 140/69 Pulse Oximetry 97 97 97 Oxygen Delivery Room Air Room Air Room Air Oxygen Flow Rate 04/29/24 15:20 04/29/24 15:45 04/29/24 16:00 Temperature 36.4 C 36.4 C Pulse Rate 80 84 83 Respiratory Rate 15 15 16 Blood Pressure 146/71 H 128/65 126/68 Pulse Oximetry 96 99 98 Oxygen Delivery Room Air Oxygen Flow Rate 04/29/24 16:00 04/29/24 16:30 04/29/24 17:30 Temperature 36.4 C 36.4 C Pulse Rate 80 76 Respiratory Rate 16 17 Blood Pressure 116/74 104/79 Pulse Oximetry 100 100 100 Oxygen Delivery Room Air Oxygen Flow Rate 04/29/24 19:30 04/29/24 21:26 04/30/24 01:19 Temperature 36.8 C 36.8 C Pulse Rate 77 74 Respiratory Rate 18 18 Blood Pressure 124/57 L 103/47 L Pulse Oximetry 96 95 Oxygen Delivery Room Air Oxygen Flow Rate 04/30/24 05:23 Temperature 36.7 C Pulse Rate 74 Respiratory Rate 18 Blood Pressure 111/63 Pulse Oximetry 96 Oxygen Delivery Oxygen Flow Rate Intake/Output Intake/Output: Intake & Output 04/27/24 04/28/24 04/29/24 04/30/24 23:59 23:59 23:59 23:59 Intake Total 1790 3250 Output Total 6050 5800 Balance -4260 -2550 Meds/Results Medications: Active Medications Generic Name Dose Route Start Last Admin Trade Name Freq PRN Reason Stop Dose Admin Hydrocodone Bitart/Acetaminophen 1 tab 04/29/24 15:41 04/30/24 06:12 Hydrocodone/Acetaminophen (*Crx) 5-325 Mg Tablet PO 1 tab Q4H PRN Administration Pain Rated 1-6 Atorvastatin Calcium 40 mg 04/30/24 09:00 Atorvastatin 40 Mg Tablet PO DAILY [facility] Cephalexin HCl 500 mg 04/29/24 12:00 04/29/24 22:09 Cephalexin 500 Mg Capsule PO 500 mg QID GERDA Administration Docusate Sodium 100 mg 04/29/24 17:00 04/29/24 17:31 Docusate Sodium 100 Mg Capsule PO 100 mg BID GERDA Administration Ezetimibe 10 mg 04/30/24 09:00 Ezetimibe 10 Mg Tablet PO DAILY [facility] Hyoscyamine 0.125 mg 04/29/24 15:41 Hyoscyamine Sulfate 0.125 Mg Tablet SUBLINGUAL Q6H PRN Bladder Spasm Morphine Sulfate 2 mg 04/29/24 15:41 Morphine Sulfate (*Crx) 2 Mg/Ml Inj IV PUSH Q2H PRN Pain Rated 7-10 Naloxone HCl 0.1 mg 04/29/24 15:41 Naloxone Hcl 0.4 Mg/Ml Vial IV PUSH Q2M PRN Opiate Reversal Ondansetron HCl 4 mg 04/29/24 15:41 Ondansetron Inj 4 Mg/2 Ml Vial IV PUSH Q12H PRN Nausea And Vomiting Labs Labs: Laboratory Results - last 24 hr 04/30/24 04:38 Hgb 12.3 Hct 37.5 Sodium 138 Potassium 4.3 Chloride 107 Carbon Dioxide 24 Anion Gap 7 BUN 10 Creatinine 0.64 L Estim Creat Clear Calc 67 Estimated GFR > 60 Glucose 96 Calcium 8.5
[2024-04-30] MEDS: DOCUSATE SODIUM 100 MG CAPSULE PO ×2 (09:29→17:06)
[2024-04-30] MEDS: EZETIMIBE 10 MG TABLET PO (09:29)
[2024-04-30] MEDS: ATORVASTATIN 40 MG TABLET PO (09:29)
[2024-04-30] MEDS: CEPHALEXIN 500 MG CAPSULE PO ×4 (09:29→20:50)
--- NOTE | 2024-04-30 12:05 | ECG_ITS ---
Test Date: 2024-04-30 12:20:41 Measurements Intervals [place] Rate: 67 P: 53 NC: 157 QRS: 3 QRSD: 84 T: 4 QT: 418 QTc: 442 Interpretive Statements SINUS RHYTHM LOW QRS VOLTAGE IN PRECORDIAL LEADS [QRS DEFLECTION < 1.0 mV IN CHEST LEADS] Compared to ECG 04/23/2024 15:17:45 No significant changes Electronically Signed On 04-30-2024 13:04:06 CDT by Benji Aguero M.D.
[2024-04-30] MEDS: MORPHINE SULFATE (*CRX) 2 MG/ML INJ IV PUSH (12:07)
[2024-04-30] MEDS: VENLAFAXINE HCL XR 75 MG CAP.ER.24H PO (12:48)
[2024-04-30] MEDS: ASPIRIN 81 MG CHEWABLE TABLET PO (12:49)
[2024-04-30] MEDS: levETIRAcetam 500 MG TABLET PO ×2 (12:49→20:51)
[2024-04-30 14:26] LABS: Troponin I < 0.012 ng/mL (0.000-0.034)
[2024-04-30 17:10] LABS: Troponin I < 0.012 ng/mL (0.000-0.034)
--- NOTE | 2024-04-30 20:09 | P.CONIM_ITS ---
Assessment and Plan Assessment and plan (1) Chest pain: Qualifiers: Chest pain type: other chest pain Qualified Code(s): R07.89 - Other chest pain Code(s): R07.9 - Chest pain, unspecified Status: Acute Assessment and Plan: - EKG, initial: Sinus rhythm, rate 67, low QRS voltage in precordial leads no significant changes when compared to prior. - no adventitious lung sounds on exam, no hypoxia. Will hold on CXR at this time. - Troponin: <0.012 x3 - ASA 324 given and morphine 2 mg IV initially for chest pain - telemetry monitoring The patient has had no recurrence of chest pain. She reports multiple people in the room (staff and family) at the time of onset stating it it made her anxious due to help a.c. it was. Pain resolved after 20-30 minutes. She was given aspirin and morphine. The patient also practiced calming techniques with her daughter at the bedside which she also reports helped resolve her chest pain. Patient believes this may have been anxiety. Bedside education for red flag symptoms including recurrent chest pain, diaphoresis, nausea, shortness of breath etc.. (2) Bladder tumor: Code(s): D49.4 - Neoplasm of unspecified behavior of bladder Status: Acute Assessment and Plan: - postop day 1 from TURBT - management per urology team Plan Diet: Regular GI Prophylaxis: Not currently indicated DVT Prophylaxis: SCDs Lines: Peripheral Code Status: Full code HPI Date of Consult Consult date: 04/30/24 Requesting Physician: Juma Duran MD Primary Care Provider: Koki GriggsMD Consult Narrative Reason for consult: Chest Pain Narrative: 79-year-old female with a PMH of CVA with no residual deficits, seizures, HLD, carotid enterectomy, diverticulitis, GERD, arthritis, hypothyroidism, anxiety presented here on 04/29/2025 for a TURBT for a bladder tumor. The patient is currently postop day 1 from a TURBT for a bladder tumor. She has been on CBI at a minimal rate with only occasional bladder spasms. Currently awaiting placement in a facility that will take her with a Kathleen catheter in place. Around noon the patient developed chest pain. She describes the pain as across her chest, nonradiating, pressure, and lasted for approximately 20-30 minutes. It was relieved after the patient received 325 of aspirin and to morphine. She reports at the time of the chest pain there were multiple staff members and family members in the room (care coordination, nurses, tech) making a crowded. She believes this may have made her anxious. She denies accompanying shortness of breath, diaphoresis, nausea, vomiting, fatigue, or dizziness. She has no further complaints at this time. EKG showed sinus rhythm, rate 67, low QRS voltage in precordial leads. No significant change when compared to prior. Initial troponin negative. Review of Systems 2 Review of Systems: All systems reviewed & are unremarkable except as noted in HPI and below PMFSH Past Medical History Medical History Insomnia Anxiety Hypothyroidism GI bleed Arthritis Hiatal hernia Diverticulitis Seizures 2014, on Keppra CVA (cerebral vascular accident) 1997 post carotid endarterectomy, no residual deficits after PT Surgical History Surgical History History of arthroplasty of left knee previously failed, long-time rehab with left foot drop History of bilateral carotid endarterectomy Social History Social History Smoking packs per day: 2 Smoking cigarettes per day: 40.0 Years smoked: 20 Smoking pack-years: 40.00 Smoking status: Former smoker Alcohol intake: current Drinks per week: 1 Substance use: never Do You Feel Safe in your Home?: Yes Lack of Transportation: No Lack of Food: Never True Current Housing: I Have Housing Concerned About Future Housing: No Difficulty Paying Gas/Electric Bills: No Difficulty Paying for Meds: No Currently Unemployed: No Education: Master's Degree or Higher Difficulty w/ Childcare or Family Care: No Living arrangements: assisted living Additional living arrangements comments: W/ HUSB 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 Home Medications and Allergies Home Medications ?Medication ?Instructions ?Recorded ?Confirmed ?Type aspirin 81 mg tablet,delayed 81 mg PO DAILY 04/21/24 04/29/24 History release (Adult Low Dose Aspirin) atorvastatin 40 mg tablet 40 mg PO DAILY 04/21/24 04/29/24 History ciprofloxacin HCl 500 mg tablet 500 mg PO Q12H 04/21/24 04/29/24 History (Cipro) clopidogrel 75 mg tablet 75 mg PO DAILY 04/21/24 04/29/24 History ezetimibe 10 mg tablet 10 mg PO DAILY 04/21/24 04/29/24 History levetiracetam 500 mg tablet 500 mg PO Q12H 04/21/24 04/29/24 History levothyroxine 175 mcg tablet 175 mcg PO QAM 04/21/24 04/29/24 History trazodone 50 mg tablet 50 mg PO HS PRN insomnia 04/21/24 04/21/24 History venlafaxine 75 mg capsule,extended 75 mg PO QAM 04/21/24 04/29/24 History release 24 hr Allergies Allergy/AdvReac Type Severity Reaction Status Date / Time aspartame Allergy Hives Verified 04/29/24 11:39 Penicillins Allergy RASH Verified 04/29/24 11:39 Sulfa (Sulfonamide Allergy RASH Verified 04/29/24 11:39 Antibiotics) adhesive tape AdvReac REDNESS Verified 04/29/24 11:39 AND SKIN IRRITATION COBAN AdvReac Rash Uncoded 04/29/24 11:39 Vital Signs Vital Signs - 24 hr 04/29/24 21:26 04/30/24 01:19 04/30/24 05:23 Temperature 98.3 F 98.2 F 98.1 F Pulse Rate 77 74 74 Respiratory Rate 18 18 18 Blood Pressure 124/57 L 103/47 L 111/63 Pulse Oximetry 96 95 96 Oxygen Delivery 04/30/24 09:26 04/30/24 09:45 04/30/24 12:58 Temperature 98.5 F 98.6 F Pulse Rate 81 72 Respiratory Rate 16 16 Blood Pressure 105/57 L 104/87 Pulse Oximetry 94 98 Oxygen Delivery Room Air 04/30/24 17:16 Temperature 98.9 F Pulse Rate 69 Respiratory Rate 16 Blood Pressure 116/54 L Pulse Oximetry 98 Oxygen Delivery Exam 2 Const: General: comfortable and no acute distress Other: , female, nontoxic appearance HENMT: Face/Nose/Sinus: Normal nares present Mouth: Yes moist mucous membranes Eyes: General: appearance normal, both eyes and all related structures S clera: sclerae normal Pupils: Equal, round and reactive pupils present E OM: EOMs intact bilaterally Resp: Effort & Inspection: normal respiratory effort Auscultation: clear to auscultation bilaterally Cardio: Rate: regular rate Rhythm: regular rhythm Other: S1-S2 present without murmur, rub, ectopy GI: Other: Abdomen soft, nondistended, nontender. Normoactive bowel sounds in all quadrants. Urinary Catheter: Urinary Catheter: patent and draining and urine clear Skin: General skin exam: normal color and no rashes or lesions noted W ounds: no wounds Neuro: Speech: normal speech Motor exam (neuro): 5/5 motor strength present throughout Sensory Exam: normal sensation Other: A&O x4 Extrem: General: normal to inspection Psych: Mental Status: mental status grossly normal Affect: normal affect Other: Mild anxiety. Good insight and judgment, pleasant. Results Labs 04/30/24 04:38 04/30/24 04:38 Labs: Short CBC 04/30/24 Range/Units 04:38 Hgb 12.3 (12.0-15.0) g/dL Hct 37.5 (37.0-47.0) % BMP 04/30/24 04:38 Sodium 138 Potassium 4.3 Chloride 107 Carbon Dioxide 24 BUN 10 Creatinine 0.64 L Glucose 96 Calcium 8.5 Cardiac Enzymes 04/30/24 04/30/24 Range/Units 12:27 16:41 Troponin I < 0.012 < 0.012 (0.000-0.034) ng/mL Quality VTE Prophylaxis VTE prophylaxis: mechanical ordered Hospitalist [facility] Advance Care Plan I have confirmed that the patient's Advanced Care Plan is present, code status is documented, or surrogate decision maker is listed in patient medical record.: Yes Medication Reconciliation I have utilized all available resources to obtain, update and review the patients current medications (includes all prescriptions, OTC, herbals, cannabis, and nutritional supplements).: Yes
[2024-04-30 20:21] LABS: Troponin I < 0.012 ng/mL (0.000-0.034)
[2024-05-01] VITALS: PULSE 71
[2024-05-01 04:00] VITALS: PULSE 68
[2024-05-01 06:21] VITALS: BP 126/78; PULSE 72; RESP 17; TEMP 36.8; O2SAT 96
[2024-05-01] MEDS: LEVOTHYROXINE SODIUM 100 MCG TABLET PO (06:34)
[2024-05-01] MEDS: LEVOTHYROXINE SODIUM 75 MCG TABLET PO (06:34)
--- NOTE | 2024-05-01 06:56 | P.CONIM_ITS ---
Assessment and Plan Assessment and plan (1) Chest pain: Qualifiers: Chest pain type: other chest pain Qualified Code(s): R07.89 - Other chest pain Code(s): R07.9 - Chest pain, unspecified Status: Acute Assessment and Plan: - EKG, initial: Sinus rhythm, rate 67, low QRS voltage in precordial leads no significant changes when compared to prior. - no adventitious lung sounds on exam, no hypoxia. Will hold on CXR at this time. - Troponin: <0.012 x3 - ASA 324 given and morphine 2 mg IV initially for chest pain - telemetry monitoring Continues to deny any chest pain, shortness of breath, dizziness or n/v since her episode of chest pain yesterday. No significant changes on telemetry. Hospitalist groups signs off, rest of care per urology (2) Bladder tumor: Code(s): D49.4 - Neoplasm of unspecified behavior of bladder Status: Acute Assessment and Plan: - postop day 2 from TURBT - management per urology team Plan Diet: Regular GI Prophylaxis: Not currently indicated DVT Prophylaxis: SCDs Lines: Peripheral Code Status: Full code HPI Date of Consult Consult date: 05/01/24 Requesting Physician: Compa Varela PA-C Primary Care Provider: Koki Griggs, Consult Narrative Narrative: 79-year-old female with a PMH of CVA with no residual deficits, seizures, HLD, carotid enterectomy, diverticulitis, GERD, arthritis, hypothyroidism, anxiety presented here on 04/29/2025 for a TURBT for a bladder tumor. The patient is currently postop day 1 from a TURBT for a bladder tumor. She has been on CBI at a minimal rate with only occasional bladder spasms. Currently awaiting placement in a facility that will take her with a Kathleen catheter in place. Around noon the patient developed chest pain. She describes the pain as across her chest, nonradiating, pressure, and lasted for approximately 20-30 minutes. It was relieved after the patient received 325 of aspirin and to morphine. She reports at the time of the chest pain there were multiple staff members and family members in the room (care coordination, nurses, tech) making a crowded. She believes this may have made her anxious. She denies accompanying shortness of breath, diaphoresis, nausea, vomiting, fatigue, or dizziness. She has no further complaints at this time. EKG showed sinus rhythm, rate 67, low QRS voltage in precordial leads. No significant change when compared to prior. Initial troponin negative. Review of Systems 2 Review of Systems: All systems reviewed & are unremarkable except as noted in HPI and below [facility] Past Medical History Medical History Insomnia Anxiety Hypothyroidism GI bleed Arthritis Hiatal hernia Diverticulitis Seizures 2014, on Keppra CVA (cerebral vascular accident) 1997 post carotid endarterectomy, no residual deficits after PT Surgical History Surgical History History of arthroplasty of left knee previously failed, long-time rehab with left foot drop History of bilateral carotid endarterectomy Social History Social History Smoking packs per day: 2 Smoking cigarettes per day: 40.0 Years smoked: 20 Smoking pack-years: 40.00 Smoking status: Former smoker Alcohol intake: current Drinks per week: 1 Substance use: never Do You Feel Safe in your Home?: Yes Lack of Transportation: No Lack of Food: Never True Current Housing: I Have Housing Concerned About Future Housing: No Difficulty Paying Gas/Electric Bills: No Difficulty Paying for Meds: No Currently Unemployed: No Education: Master's Degree or Higher Difficulty w/ Childcare or Family Care: No Living arrangements: assisted living Additional living arrangements comments: W/ HUSB Spiritual care concerns: No (buddhism) Meds Home Medications and Allergies Home Medications ?Medication ?Instructions ?Recorded ?Confirmed ?Type aspirin 81 mg tablet,delayed 81 mg PO DAILY 04/21/24 04/29/24 History release (Adult Low Dose Aspirin) atorvastatin 40 mg tablet 40 mg PO DAILY 04/21/24 04/29/24 History ciprofloxacin HCl 500 mg tablet 500 mg PO Q12H 04/21/24 04/29/24 History (Cipro) clopidogrel 75 mg tablet 75 mg PO DAILY 04/21/24 04/29/24 History ezetimibe 10 mg tablet 10 mg PO DAILY 04/21/24 04/29/24 History levetiracetam 500 mg tablet 500 mg PO Q12H 04/21/24 04/29/24 History levothyroxine 175 mcg tablet 175 mcg PO QAM 04/21/24 04/29/24 History trazodone 50 mg tablet 50 mg PO HS PRN insomnia 04/21/24 04/21/24 History venlafaxine 75 mg capsule,extended 75 mg PO QAM 04/21/24 04/29/24 History release 24 hr Allergies Allergy/AdvReac Type Severity Reaction Status Date / Time aspartame Allergy Hives Verified 04/29/24 11:39 Penicillins Allergy RASH Verified 04/29/24 11:39 Sulfa (Sulfonamide Allergy RASH Verified 04/29/24 11:39 Antibiotics) adhesive tape AdvReac REDNESS Verified 04/29/24 11:39 AND SKIN IRRITATION COBAN AdvReac Rash Uncoded 04/29/24 11:39 Vital Signs Vital Signs - 24 hr 04/30/24 09:26 04/30/24 09:45 04/30/24 12:58 Temperature 98.5 F 98.6 F Pulse Rate 81 72 Respiratory Rate 16 16 Blood Pressure 105/57 L 104/87 Pulse Oximetry 94 98 Oxygen Delivery Room Air 04/30/24 17:16 04/30/24 20:24 04/30/24 21:20 Temperature 98.9 F 97.3 F L Pulse Rate 69 77 74 Respiratory Rate 16 17 Blood Pressure 116/54 L 121/73 Pulse Oximetry 98 94 Oxygen Delivery 05/01/24 00:00 05/01/24 04:00 05/01/24 06:21 Temperature 98.3 F Pulse Rate 71 68 72 Respiratory Rate 17 Blood Pressure 126/78 Pulse Oximetry 96 Oxygen Delivery Exam 2 Const: General: comfortable and no acute distress Other: , female, nontoxic appearance HENMT: Face/Nose/Sinus: Normal nares present Mouth: Yes moist mucous membranes Eyes: General: appearance normal, both eyes and all related structures S clera: sclerae normal Pupils: Equal, round and reactive pupils present E OM: EOMs intact bilaterally Resp: Effort & Inspection: normal respiratory effort Auscultation: clear to auscultation bilaterally Cardio: Rate: regular rate Rhythm: regular rhythm Other: S1-S2 present without murmur, rub, ectopy GI: Other: Abdomen soft, nondistended, nontender. Normoactive bowel sounds in all quadrants. Urinary Catheter: Urinary Catheter: patent and draining and urine clear Skin: General skin exam: normal color and no rashes or lesions noted W ounds: no wounds Neuro: Cranial nerves: Yes Equal, round and reactive pupils present Speech: normal speech Motor exam (neuro): 5/5 motor strength present throughout S ensory Exam: normal sensation Other: A&O x4 Extrem: General: normal to inspection Psych: Mental Status: mental status grossly normal Affect: normal affect Other: Mild anxiety. Good insight and judgment, pleasant. Results Labs 04/30/24 04:38 04/30/24 04:38 Labs: Cardiac Enzymes 04/30/24 04/30/24 04/30/24 Range/Units 12:27 16:41 19:44 Troponin I < 0.012 < 0.012 < 0.012 (0.000-0.034) ng/mL Quality VTE Prophylaxis VTE prophylaxis: mechanical ordered
[2024-05-01 08:00] VITALS: PULSE 81
[2024-05-01] MEDS: levETIRAcetam 500 MG TABLET PO (08:39)
[2024-05-01] MEDS: DOCUSATE SODIUM 100 MG CAPSULE PO (08:39)
[2024-05-01] MEDS: ATORVASTATIN 40 MG TABLET PO (08:39)
[2024-05-01] MEDS: CEPHALEXIN 500 MG CAPSULE PO ×2 (08:39→12:45)
[2024-05-01] MEDS: EZETIMIBE 10 MG TABLET PO (08:39)
[2024-05-01] MEDS: VENLAFAXINE HCL XR 75 MG CAP.ER.24H PO (08:39)
--- NOTE | 2024-05-01 12:40 | P.PNUR_ITS ---
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 Notify [place] results. Will workup as outpatient. At this point time a urine is clear. Will discharge home with Kathleen catheter and have it removed by family on Sunday. Subjective Subjective Date/Time Seen: 05/01/24 12:40 Interval history: No complaints at this time. Urine clear off CBI Review of Systems Review of Systems: All systems reviewed & are unremarkable except as noted in HPI and below Exam Const: General: cooperative, comfortable and no acute distress Resp: Effort & Inspection: normal respiratory effort Cardio: Rate: regular rate Rhythm: regular rhythm Urinary Catheter: Urinary Catheter: patent and draining and urine clear Objective Data Vital Signs Vital Signs: Vital Signs - 24 hr 04/30/24 12:58 04/30/24 17:16 04/30/24 20:24 Temperature 37.0 C 37.2 C 36.3 C L Pulse Rate 72 69 77 Respiratory Rate 16 16 17 Blood Pressure 104/87 116/54 L 121/73 Pulse Oximetry 98 98 94 Oxygen Delivery 04/30/24 21:00 04/30/24 21:20 05/01/24 00:00 Temperature Pulse Rate 75 74 71 Respiratory Rate Blood Pressure Pulse Oximetry Oxygen Delivery 05/01/24 04:00 05/01/24 06:21 05/01/24 08:00 Temperature 36.8 C Pulse Rate 68 72 81 Respiratory Rate 17 Blood Pressure 126/78 Pulse Oximetry 96 Oxygen Delivery 05/01/24 08:35 Temperature Pulse Rate Respiratory Rate Blood Pressure Pulse Oximetry Oxygen Delivery Room Air Intake/Output Intake/Output: Intake & Output 04/28/24 04/29/24 04/30/24 05/01/24 23:59 23:59 23:59 23:59 Intake Total 1790 6010 440 Output Total 6050 10517 1100 [facility] -4260 -7940 -660 Meds/Results Medications: Active Medications Generic Name Dose Route Start Last Admin Trade Name Freq PRN Reason Stop Dose Admin Hydrocodone Bitart/Acetaminophen 1 tab 04/29/24 15:41 04/30/24 21:08 Hydrocodone/Acetaminophen (*Crx) 5-325 Mg Tablet PO 1 tab Q4H PRN Administration Pain Rated 1-6 Atorvastatin Calcium 40 mg 04/30/24 09:00 05/01/24 08:39 Atorvastatin 40 Mg Tablet PO 40 mg DAILY GERDA Administration Cephalexin HCl 500 mg 04/29/24 12:00 05/01/24 08:39 Cephalexin 500 Mg Capsule PO 500 mg QID GERDA Administration Docusate Sodium 100 mg 04/29/24 17:00 05/01/24 08:39 Docusate Sodium 100 Mg Capsule PO 100 mg BID GERDA Administration Ezetimibe 10 mg 04/30/24 09:00 05/01/24 08:39 Ezetimibe 10 Mg Tablet PO 10 mg DAILY COUNTS INCLUDE 234 BEDS AT THE [facility] Administration Hyoscyamine 0.125 mg 04/29/24 15:41 Hyoscyamine Sulfate 0.125 Mg Tablet SUBLINGUAL Q6H PRN Bladder Spasm Levetiracetam 500 mg 04/30/24 12:25 05/01/24 08:39 Levetiracetam 500 Mg Tablet PO 500 mg Q12HR GERDA Administration Levothyroxine Sodium 100 mcg 05/01/24 06:30 05/01/24 06:34 Levothyroxine Sodium 100 Mcg Tablet PO 100 mcg DAILY@0630 COUNTS INCLUDE 234 BEDS AT THE [facility] Administration Levothyroxine Sodium 75 mcg 05/01/24 06:30 05/01/24 06:34 Levothyroxine Sodium 75 Mcg Tablet PO 75 mcg DAILY@0630 COUNTS INCLUDE 234 BEDS AT THE [facility] Administration Morphine Sulfate 2 mg 04/29/24 15:41 04/30/24 12:07 Morphine Sulfate (*Crx) 2 Mg/Ml Inj IV PUSH 2 mg Q2H PRN Administration Pain Rated 7-10 Naloxone HCl 0.1 mg 04/29/24 15:41 Naloxone Hcl 0.4 Mg/Ml Vial IV PUSH Q2M PRN Opiate Reversal Ondansetron HCl 4 mg 04/29/24 15:41 Ondansetron Inj 4 Mg/2 Ml Vial IV PUSH Q12H PRN Nausea And Vomiting Venlafaxine HCl 75 mg 04/30/24 12:25 05/01/24 08:39 Venlafaxine Hcl Xr 75 Mg Cap.Er.24h PO 75 mg QAM GERDA Administration Labs Labs: Laboratory Results - last 24 hr 04/30/24 04/30/24 04/30/24 12:27 16:41 19:44 Troponin I < 0.012 < 0.012 < 0.012
--- NOTE | 2024-05-01 12:46 | PM.DS ---
DS: Admitting Diagnosis Discharge Date 05-01-24 Admitting Diagnosis hematuria with bladder mass DS: Discharge Diagnosis Discharge Diagnosis (1) Bladder cancer: Code(s): C67.9 - Malignant neoplasm of bladder, unspecified Status: Acute DS: Summary Hospital Course Hospital Course: Marco and had a uneventful transurethral section of a bladder tumor which was extensive. 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 Postoperatively she had a catheter in on CBI in her urine is cleared. She also had an episode where she complained of some epigastric/chest pain. Medicine was consulted but this was felt to be more anxiety provoked. She has done well since that time. She will be discharged home with a Kathleen catheter and have it removed on Sunday and will initiate her aspirin and Plavix at that time. Time Spent with Patient Time attestation: Total time spent providing and/or coordinating discharge services: DS: Data Data Completed and Pending Completed studies during hospitalization: Pending at discharge 04/29/24 12:33 Surgical [PTH] Routine Labs on day of discharge: Labs from last 24 hours 04/30/24 04/30/24 04/30/24 19:44 16:41 12:27 Troponin I < 0.012 < 0.012 < 0.012 Discharge Plan Discharge Attending physician on discharge: Juma Duran Discharging Clinician: Juma Duran Anticipated Discharge Date/Time: 05/01/24 12:43 [facility] Activity: may shower and no straining Diet: as tolerated Discharge Instructions: Discharged home with Kathleen catheter. Patient's daughter to remove catheter on Sunday. Follow-up in office in a couple weeks. Patient Instructions: Antibiotic Form, Clopidogrel (By mouth) Patient Language: Setswana Stand Alone Forms: General Discharge Information Discharge Medications: Continued atorvastatin 40 mg tablet 40 mg PO DAILY levothyroxine 175 mcg tablet 175 mcg PO QAM venlafaxine 75 mg capsule,extended release 24hr 75 mg PO QAM trazodone 50 mg tablet 50 mg PO HS PRN (Reason: insomnia) levetiracetam 500 mg tablet 500 mg PO Q12H ezetimibe 10 mg tablet 10 mg PO DAILY ciprofloxacin HCl [Cipro] 500 mg tablet 500 mg PO Q12H Patient Comments: X3 DAYS Held clopidogrel 75 mg tablet 75 mg PO DAILY Hold Instructions: Resume on 05/01/24. aspirin [Adult Low Dose Aspirin] 81 mg tablet,delayed release (DR/EC) 81 mg PO DAILY Hold Instructions: Resume on 05/05/24. Date of admission: 04/30/24 10:47 Primary Care Provider: AnsonKoki Admitting Provider: Juma Duran Attending physician on admission: Compa Varela Condition: Stable
== END 2024-05-01 15:15 ==
LOC: ANHSURGERY 11:06 → ANH2MED 11:06
PROVIDERS: Student in an Organized Health Care Education/Training Program; Admitting Provider Urology; PCP Family Medicine; Visit Provider Physician Assistant
PROC: 0TBB8ZZ Excision of Bladder, Via Natural or Artificial Opening Endoscopic (ICD-10-PCS; CPT 52240; principal; 2024-04-29 13:30)
DX: C67.9 Malignant neoplasm of bladder, unspecified (principal); N30.20 Other chronic cystitis without hematuria; R07.89 Other chest pain; F41.9 Anxiety disorder, unspecified; K21.9 Gastro-esophageal reflux disease without esophagitis; K44.9 Diaphragmatic hernia without obstruction or gangrene; E03.9 Hypothyroidism, unspecified; G47.00 Insomnia, unspecified; R56.9 Unspecified convulsions; M19.90 Unspecified osteoarthritis, unspecified site; E66.9 Obesity, unspecified; Z68.32 Body mass index [BMI] 32.0-32.9, adult; Z87.891 Personal history of nicotine dependence; Z86.73 Personal history of transient ischemic attack (TIA), and cerebral infarction without residual deficits; Z79.02 Long term (current) use of antithrombotics/antiplatelets; Z79.82 Long term (current) use of aspirin; Z88.0 Allergy status to penicillin; Z88.2 Allergy status to sulfonamides
CPT/HCPCS: 52240; 36415; 80048; 84484; 85014; 85018; 88305; 93005; A9270; G0378; J0690; J2003; J2270; J2405; J2704; J3010; J7120